=== PATIENT | female | born 1995 | race Caucasian/White ===

== ENCOUNTER 2021-10-23 09:17 | Outpatient (REF) | payer MEDICAID, SELFPAY | END 2021-10-23 09:18 | disposition home or self-care (01) | LOC: HO.LAB 09:17 | PROVIDERS: Visit Provider Internal Medicine | DX: Z20.822 Contact with and (suspected) exposure to COVID-19 (principal) | CPT/HCPCS: C9803; U0003; U0005 ==

== ENCOUNTER 2022-06-18 21:04 | Emergency (ER) | payer MEDICAID, SELFPAY ==
--- NOTE | ~2022-06-18 | XR_ITS ---
EXAMINATION: XR KNEE, LEFT CLINICAL INFORMATION: Patellar dislocation COMPARISON: 03/10/2019 TECHNIQUE: Three views of the left knee. FINDINGS: No fracture or subluxation. Compartmental joint spaces are maintained. Appropriate positioning of the patella on these views. No joint effusion. The soft tissues are unremarkable. XR/XR knee LT 3V IMPRESSION: Appropriate alignment of the left knee. No fracture.
[2022-06-18 21:16] VITALS: BP 138/70; PULSE 77; PULSE 85; RESP 18; TEMP 36.8; O2SAT 98; O2SAT 99; BMI 35.4
[2022-06-18] MEDS: Morphine Sulfate 4 MG/ML CARTRIDGE IVPUSH (21:28)
[2022-06-18] MEDS: Ketorolac Tromethamine 30 MG/ML VIAL IVPUSH (22:17)
[2022-06-18 22:39] VITALS: BP 144/90; PULSE 89; RESP 18; O2SAT 99
--- NOTE | 2022-06-18 22:45 | ED_ITS ---
HPI - General Adult General Chief complaint: Extremity Injury, Lower Stated complaint: KNEE DISLOCATION Time Seen by Provider: 06/18/22 21:17 Source: patient Mode of arrival: ambulatory Limitations: no limitations History of Present Illness HPI narrative: 26 yold female presents to the ED for left knee pain and possible knee disclocation. Patient states while getting up from a siting postiion she hear a pop in her left knee medial side which caused her immeidate pain. patient denies hitting head or loss of consciosuness. 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 but never follow up wtih PCP Related Data Previous Rx's Medication Instructions Recorded naproxen 500 mg tablet 500 mg PO BID PRN pain 10 days #20 06/18/22 tabs oxycodone 5 mg capsule 5 mg PO Q8H PRN pain #9 caps 06/18/22 prednisone 20 mg tablet 40 mg PO DAILY 5 days #10 tabs 06/18/22 Allergies Allergy/AdvReac Type Severity Reaction Status Date / Time No Known Allergies Allergy Verified 06/18/22 21:19 [No Known Allergies*] Review of Systems Review of Systems: left knee pain Yes all other systems are reviewed and are negative [facility] Past Medical History Medical History (Updated 06/18/22 @ 23:04 by KIMBERLY Nuñez) Knee dislocation Social History Social History Advance Directives: No Advance Directives Information Provided: No Patient : No Physical Exam ED Vital Signs: Vital Signs - 24 hr 06/18/22 21:16 06/18/22 22:39 Temperature 98.2 F Pulse Rate 77 89 Respiratory Rate 18 18 Blood Pressure 144/90 H Pulse Oximetry 99 99 Oxygen Delivery Method Room Air Room Air BMI result Body Mass Index 35.4 Const General: cooperative, healthy appearing, comfortable, no acute distress, well developed, alert, awake and Physically active Orientation/consciousness: patient oriented x3 HENMT Head: Yes normal to inspection, Yes No palpable skull fracture present, Yes normocephalic, Yes atraumatic and No abrasion Eyes General: appearance normal, both eyes and all related structures Neck Neck: Yes normal visual inspection, Yes full ROM, Yes no lymphadenopathy, Yes no meningeal signs, Yes trachea midline, Yes supple, No anterior neck swelling and No tender Chest Chest palpation & inspection: normal inspection of the chest and normal palpation of entire chest wall Resp Effort & Inspection: normal respiratory effort and able to speak in complete sentences Auscultation: clear to auscultation bilaterally Cardio Jugular venous distension: no JVD Heart sounds: S1 normal heart sound present and S2 normal heart sound present GI Inspection: Yes normal to inspection and No abdominal wall ecchymosis Palpation (GI): Soft to palpation, not firm, nontender, no guarding and not rigid General: No CVA tenderness and Yes no CVA tenderness Back/Spine/Pelvis Back: no CVA tenderness, No CVA tenderness and No sacral edema Skin General skin exam: no rashes or lesions noted and elasticity normal Neuro General: patient oriented x3, gait normal, no meningeal signs and CN's II-XI intact bilaterally Cranial nerves: Yes CN's II-XII intact bilaterally Extrem General: Yes normal to inspection and Yes full ROM Knee images: 1. Tenderness on palpation in medial side of knee on palpation. Negative for deformity of patella. Neuro and vascular exam is intact. patient flex and extend knee with pain causing some limitation on movement. Psych Appearance: grossly normal, well kempt and not disheveled Course Course Course Narrative: Left knee pain. Reevaluation(s) Reevaluation #1: Left knee xray negative for fracture or dislocation. patient informed most likely she has a meniscusus or ligament tear and will need follow up. Discharge with cruthces and knee brace Medical Decision Making MDM Narrative Medical decision making narrative: Knee sprain Discharge Plan Discharge Clinical Impression: Knee sprain Patient Disposition: Home, Self-Care Instructions: Knee Sprain (ED) Additional Instructions: You will need follow up with PcP or Orthopedics for MRI to evaluate for possible meniscus or ligament tear. Return to the ED immeidatley for knee swelling, redness, fever, chills, leg swelling, calf pain, red streakns, chest pain, shortness of breath or any other concerning symptom. Prescriptions: New naproxen 500 mg tablet 500 mg PO BID PRN (Reason: pain) 10 Days Qty: 20 0RF prednisone 20 mg tablet 40 mg PO DAILY 5 Days Qty: 10 0RF oxycodone 5 mg capsule 5 mg PO Q8H PRN (Reason: pain) Qty: 9 0RF Rx Instructions: Partial Fill upon patient request. Referrals: Filiberto Hammer MD [Physician] - (heard pop in left knee. Possible knee menisucs/ligament tear) Stand Alone Forms: Work/School Release Discharge Date/Time: 06/18/22 23:22 Print Language: Amharic
[2022-06-18] MEDS: Morphine Sulfate 2 MG/ML CARTRIDGE IVPUSH (23:08)
== END 2022-06-18 23:22 | disposition home or self-care (01) ==
PROVIDERS: Emergency Provider Internal Medicine
DX: S83.92XA Sprain of unspecified site of left knee, initial encounter (principal); M25.562 Pain in left knee; X50.1XXA Overexertion from prolonged static or awkward postures, initial encounter; Y93.9 Activity, unspecified; Y92.009 Unspecified place in unspecified non-institutional (private) residence as the place of occurrence of the external cause; Y99.9 Unspecified external cause status; Z79.899 Other long term (current) drug therapy
CPT/HCPCS: 73562; 96374; 96375; 96376; 99284; J1885; J2270

== ENCOUNTER 2022-07-04 07:23 | Outpatient (REF) | payer MEDICAID, SELFPAY ==
--- NOTE | ~2022-07-04 | XR_ITS ---
EXAMINATION: XR KNEE, LEFT CLINICAL INFORMATION: Left knee pain. COMPARISON: Radiographs left knee 06/18/2022, MRI left knee 03/24/2019. TECHNIQUE: Axial view patella. FINDINGS: Normal bony mineralization. No fracture. No patellar dislocation or lateralization. No narrowing patellofemoral joint or erosive change or chondrocalcinosis. XR/XR knee LT 1V IMPRESSION: Normal study.
== END 2022-07-04 07:24 | disposition home or self-care (01) ==
LOC: HO.HOSX 07:23
PROVIDERS: Visit Provider Physician Assistant
DX: M25.562 Pain in left knee (principal); M23.92 Unspecified internal derangement of left knee
CPT/HCPCS: 73560; 99202

== ENCOUNTER 2022-07-12 19:35 | Outpatient (REF) | payer OTHER, MEDICAID, SELFPAY ==
--- NOTE | ~2022-07-12 | MR_ITS ---
EXAMINATION: MR KNEE WITHOUT CONTRAST, LEFT CLINICAL INFORMATION: Left knee pain and swelling. Internal derangement. COMPARISON: Most recent left knee MRI dated 03/24/2019 and left knee radiographs dated 07/04/2022. TECHNIQUE: MRI of the knee without contrast was performed using routine sequences on a high-field scanner. FINDINGS: MENISCI: Medial Meniscus: Bucket-handle tear of the medial meniscus with approximate 75% of the meniscal tissue displaced centrally. Tearing extends from the anterior horn to the posterior root. Lateral Meniscus: Intact. LIGAMENTS: Cruciate: Absence of the anterior cruciate ligament consistent with a chronic, complete tear. Intact posterior cruciate ligament. Collateral: Intact. EXTENSOR MECHANISM: Intact. ARTICULAR CARTILAGE/BONE: Patellofemoral Compartment: Normal. Medial Compartment: Normal. Lateral Compartment: Normal. JOINT FLUID AND BURSAE: Moderate joint effusion. MR/MR knee LT wo con IMPRESSION: 1. Bucket-handle tear of the medial meniscus with approximate 75% of the meniscal volume displaced centrally. The tear extends from the anterior horn to the posterior root. 2. Chronic, complete anterior cruciate ligament tear. 3. Moderate joint effusion.
== END 2022-07-12 19:36 | disposition home or self-care (01) ==
LOC: HO.MRI 19:35
PROVIDERS: Visit Provider Emergency Medicine
DX: M23.92 Unspecified internal derangement of left knee (principal)
CPT/HCPCS: 73721

== ENCOUNTER → 2022-07-16 14:27 | Outpatient (BNVA) | payer OTHER, MEDICAID, SELFPAY | PROVIDERS: Visit Provider Orthopaedic Surgery | DX: S83.212D Bucket-handle tear of medial meniscus, current injury, left knee, subsequent encounter (principal); S83.512D Sprain of anterior cruciate ligament of left knee, subsequent encounter | CPT/HCPCS: 99212 ==

== ENCOUNTER 2022-07-25 05:52 | Day surgery (SDC) | payer OTHER, MEDICAID, SELFPAY ==
--- NOTE | 2022-07-24 08:41 | P.CONAN_ITS ---
Documented by User: Neema Huerta NP 07/24/22 08:41 HPI - Anesthesia Eval Consult details Narrative: 26yo F for Left ACL Allograft,and meniscus tear PMFSH Active Problems Active Problems: All Active Problems (Updated 07/16/22 @ 15:13 by Rod Barnett) Tears of meniscus and ACL of left knee (Acute) Locked knee (Acute) Internal derangement of left knee (Acute) Past Medical History Medical History Knee dislocation Social History Social History Patient Tobacco Use Status: Current everyday Tobacco user Tobacco use type: Cigarette Cigarettes Per Day: 3 Use of substances other than those prescribed or required for medical reasons: No Are you DNR?: No Advance Directives: No Advance Directives Information Provided: Yes Current occupational status: employed 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 Meds Allergies Allergy/AdvReac Type Severity Reaction Status Date / Time No Known Allergies Allergy Verified 07/16/22 15:08 [No Known Allergies*] Home Medications Medication Instructions Recorded Confirmed Last Taken Type levonorgestrel 1.5 mg tablet 1.5 mg PO ONCE 07/04/22 Unknown History (Aftera) Exam Exam Date and Time: July 24, 2022 0841 Assessment and Plan Assessment Anesthesia Assessment: Chart Reviewed Documented by User: Christ Goncalves MD 07/25/22 07:34 [facility] Past Medical History Medical History Knee dislocation Family History Family history of problems with anesthesia: No Surgical History History of Problems with Anesthesia: No Social History Social History Patient Tobacco Use Status: Current everyday Tobacco user Tobacco use type: Cigarette Cigarettes Per Day: 3 Use of substances other than those prescribed or required for medical reasons: No Are you DNR?: No Advance Directives: No Advance Directives Information Provided: Yes Current occupational status: employed 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 Meds Allergies Allergy/AdvReac Type Severity Reaction Status Date / Time No Known Allergies Allergy Verified 07/16/22 15:08 [No Known Allergies*] Home Medications Medication Instructions Recorded Confirmed Last Taken Type levonorgestrel 1.5 mg tablet 1.5 mg PO ONCE 07/04/22 Unknown History (Aftera) Exam Airway Mallampati Class: II TM Dist: >3cm Neck ROM: Full Loose/Missing/Broken Teeth: No Heart: rrr+[id number] Lungs: cta b/l Assessment and Plan Assessment Anesthesia Assessment: Anesthesia Plan Discussed Final Anesthetic Review Family History of Problems with Anesthesia: No History of Problems with Anesthesia: No NPO: Yes ASA Class: I Final Preanesthetic Review: No Changes in Pt Med Stat, Meds/Allgs Chart Reviewed, Consent Obtained/Reviewed and Anes Risks/Benef Reviewed Patient Risk: Low Procedure Risk: Low Assessment/Block/Sedation in SS: Assess/Block/Sedation-SS Anesthetic Plan Anesthetic Plan: GA and Agree w/ Assess. and Plan Disposition: Standard PACU
[2022-07-25] VITALS (19 sets, daily range): BP systolic 111–134; BP diastolic 45–86; PULSE 70–99; RESP 14–22; TEMP 36.4–36.7; O2SAT 94–98; BMI 34.0
[2022-07-25 06:27] LABS: UPreg QC Valid YES; Urine Pregnancy NEGATIVE (NEGATIVE)
--- NOTE | 2022-07-25 07:33 | MHC.SHP ---
Pre-Procedural Eval Section A Date of Service: 07/25/22 The patient is an INPATIENT: No Changes since office visit: Yes Patient answered all questions; No Cold of Flu in the past 2 weeks, No New Medical Problems and No Changes in Medication The History & Physical has been completed within 30 days and I have reviewed it.: Yes Section B Chief Complaint: Unspecified tear meniscus, current Allergies: Allergies Allergy/AdvReac Type Severity Reaction Status Date / Time No Known Allergies Allergy Verified 07/16/22 15:08 [No Known Allergies*] Plan I have reviewed the history and physical and performed a pertinent physical examination on my patient. No changes have occurred unless specified.
--- NOTE | 2022-07-25 09:36 | PM.OP ---
Brief Operative Note Date of Service: 07/25/22 Pre-op diagnosis: Left knee ACL tear and medial meniscus tear Post-op diagnosis: same Procedure: Left knee ACL reconstruction with allograft Left knee medial meniscus repair Implants: Blackwood and Nephew fast pass x 4 Blackwood and Nephew ACL button and 9x25 tibial interference biocomposite screw RTI posterior tibial allograft Surgeon: Filiberto Hammer MD Anesthesia: GETA and local Was an Forming Operator used for this Procedure?: Yes Forming Operator: Cassi Barakat Estimated blood loss (mL): 25 Tourniquet time (min): 70 IV fluids (mL): 100 Pathology: other Condition: stable Disposition: PACU
[2022-07-25] MEDS: oxyCODONE HCl Immed Release 5 MG TABLET 10 MG PO (09:49)
[2022-07-25] MEDS: ondansetron HCL 4 MG/2 ML VIAL IVPUSH (09:50)
[2022-07-25] MEDS: fentaNYL citrate/PF 100 MCG/2 ML VIAL 50 MCG IVPUSH ×4 (09:50→12:51)
--- NOTE | 2022-07-25 09:52 | P.OP_ITS ---
Operative Note Operative Note Date of Service: 07/25/22 Narrative: Date of Service: 07/25/22 Pre-op diagnosis: Left knee ACL tear and medial meniscus tear Post-op diagnosis: same Procedure: Left knee ACL reconstruction with allograft Left knee medial meniscus repair Implants: Blackwood and Nephew fast pass x 4 Blackwood [employer] Nephew ACL button and 9x25 tibial interference biocomposite screw RTI posterior tibial allograft Surgeon: Filiberto Hammer MD Anesthesia: GETA and local Was an Supervisor Type Photography used for this Procedure?: Yes Supervisor Type Photography: Cassi Barakat Estimated blood loss (mL): 25 Tourniquet time (min): 70 IV fluids (mL): 100 Pathology: other Condition: stable Disposition: PACU CPT: 70221 ACL reconstruction 96814 Medial meniscus repair Procedure in detail: Patient was brought to the operating room placed supine on the arthroscopic table and prepped and draped in standard sterile fashion. A time-out was called to identify proper site proper procedure proper surgeon and IV antibiotics per weight were administered. Under anesthesia she had a + pivot shift. I began by exsanguinating the limb and insufflating tourniquet to 300 mm Hg. Then made a standard anterolateral stab incision. The knee was insufflated with water and 30 degree arthroscope was placed. There was grade 0 fibrillations of the patella but overall suprapatellar pouch and the gutters were clean. I descended into the medial compartment where I made my far medial portal under direct visualization. There was an unstable bucket handle medial meniscus tear in the red/white zone. The root was intact and there were scattered grade 1 changes of the MFC. I used four Fast Pass meniscal cinches (Blackwood and Nephew) to repair the tear through the AM portal. A menicsal rasp was used to debride the posteromedial meniscal bed. I was satisfied with the extent of repair. I then examined the notch where there was a + empty wall sign and an intact PCL. I debrided the stump and acl footprint and performed a limited notchplasty. I then, through a far AM portal and a 7mm behind the back guide, drilled a k-wire through the LFC with the knee in hyper-flexion. I measured the tunnel as a 30mm and then after sizing the allograft on the back table drilled a 25 mm tunnel with a 9 mm reamer. The final 6 mm was drilled with a 4.5 reamer. I then pulled a suture through the femoral tunnel and turned my attention to the tibia. I did examine the femoral tunnel and was satisfied with the posterior wall and its location low and medial at the anatomic footprint. I placed my tibial drill guide in 55 deg and, through an anteromedial inc just lateral to the tibial tubercle placed a k-wire into the notch exiting just medial to the anterior horn insertion of the lateral meniscus. I then over-reamed with a 9mm reamer. I cleaned the tunnels up with a shaver. On the back table I whip-stitched the allograft to fit through an 9 aperture and attached the femoral button to the looped end. I placed the graft on 15lbs of tension for 10 minutes. I then passed the allograft through the tibial tunnel and femoral tunnel and flipped the button. I cycled the knee about 10-15 cycles and then placed a 9x25mm tibial interference screw with the knee in hyper-extension while holding the graft taught and under tension. Once I was satisfied that the interference screw was buried I examined the ACL and the medial meniscus repair. The repair was stable and the ACL was not impinging and there was a negative pivot shift. I then removed all instrumentation and closed the incisions with absorbable suture and skin glue. Patient was then placed in sterile dressings and a hinged knee brace. She was then extubated brought recovery room stable condition. There were no known complications.
[2022-07-25] MEDS: Ketorolac Tromethamine 30 MG/ML VIAL IVPUSH (10:05)
== END 2022-07-25 14:15 | disposition home or self-care (01) ==
PROVIDERS: Nurse Practitioner; Visit Provider Orthopaedic Surgery
PROC: (CPT 27428; principal; 2022-07-25 07:30)
DX: S83.212A Bucket-handle tear of medial meniscus, current injury, left knee, initial encounter (principal); S83.512A Sprain of anterior cruciate ligament of left knee, initial encounter; M25.40 Effusion, unspecified joint; X50.1XXA Overexertion from prolonged static or awkward postures, initial encounter; Y93.9 Activity, unspecified; Y92.9 Unspecified place or not applicable; Y99.8 Other external cause status
CPT/HCPCS: 29888; 29882; 81025; A4649; C1713; C1769; J0131; J0171; J0690; J1100; J1170; J1885; J2250; J2405; J2550; J2795; J3010

== ENCOUNTER 2022-08-02 | Outpatient (REF) | payer OTHER, MEDICAID, SELFPAY ==
--- NOTE | ~2022-08-02 | XR_ITS ---
EXAMINATION: XR KNEE, LEFT CLINICAL INFORMATION: Pain. COMPARISON: None TECHNIQUE: Four views of the left knee. FINDINGS: There is mild suprapatellar joint effusion with evidence of left AC tendon repair. The tricompartment joint space is maintained normal. No loose bodies or fracture seen. XR/XR knee LT 2V IMPRESSION: Mild suprapatellar joint effusion. Evidence of left AC tendon repair changes. No acute fracture or loose bodies.
== END 2022-08-02 00:01 | disposition home or self-care (01) ==
LOC: HO.HOSX
PROVIDERS: Visit Provider Physician Assistant
DX: M25.562 Pain in left knee (principal)
CPT/HCPCS: 73560

== ENCOUNTER 2022-09-28 15:00 | Outpatient (RCR) | payer OTHER, MEDICAID, SELFPAY ==
--- NOTE | 2022-07-30 18:15 | MHC.PT.EP ---
[facility] [place] Office [place] Office [place] Office [address] [phone] F: [phone] F: [phone] F: [phone] F: [phone] Physical Therapy Plan of Care Date of Evaluation: Date of Surgery: 07/25/22 Diagnosis: P/O ACL allograft repair and medial meniscus repair on 07/25 (RC + BB) Assessment: pt is a 26 y/o female presenting to physical therapy following L LE ACL allograft repair and L medial meniscus complex repair on 07/25. Impairments include pain, decreased range of motion, decreased strength, impaired functional mobility, impaired postural awareness, and altered ambulation mechanics. pt is a good candidate for skilled PT due to age, potential remediation of impairments, typical disease/condition progression and prognosis, comorbidities, and motivation. pt would benefit from skilled PT intervention to provide a tailored strengthening and stretching exercise program, functional training, gait training, postural re-training, neuromuscular re-education, modalities as needed for pain, equipment safety demonstration. Frequency and Duration: The patient will be seen 2x/wk for 18 wks Short Term Goals: pt will be I w/ HEP to promote self-management of post-operative status. pt will be I w/ donning/doffing brace to participate in self-care activities and exercise. pt wll improve L knee flexion to at least 90* to promote improved sitting tolerance for ADLs. Shelter Goals: pt will report a statistically significant improvement in self-reported outcome measure, LEFI, to promote return to PLOF. pt will improve L knee extension strength to at least 4/5 to promote ease in sit<>stand transfers. pt will ambulate 5 x 50' to promote ease in household ambulation to access primary living spaces. Treatment Plan: Modalities to reduce pain, spasms and effusion. Manual therapy to restore motion and function. Therapeutic exercise to improve strength and flexibility. Neuromuscular re-education for posture and balance. Therapeutic activities to return to functional activities of daily living. Electronically signed by: Rosalee Trimble PT, DPT Please sign and return to therapist. Thank you for your referral.
--- NOTE | 2022-10-17 18:04 | MHC.PT.DC ---
[facility] [place] Office [place] Office [place] Office [address]unn [address] [phone] F: [phone] F: [phone] F: [phone] F: [phone] Physical Therapy Discharge Report Diagnosis: P/O ACL allograft repair and medial meniscus repair on 07/25 (RC + BB) Date of Surgery: 07/25/22 Date of Evaluation: 07/27/22 Date of Discharge: 10/17/22 Treatments to Date: 16 Cancellations to Date: 1 No Shows to Date: 6 Discharge Status: Improved Function Visit Non-compliance Discharge Summary: The patient was coming consistently and reporting an improvement in her pain frequency, intensity, and ability to tolerate activities within her home. She has no showed a total of 6 visits. The last 4 were consecutive. This office has reached out to her multiple times with no response. She is being discharged from this physical therapy plan of care due to non-compliance. Electronically signed by: Rosalee Trimble PT, DPT Please sign and return to therapist. Thank you for your referral.
== END 2022-10-17 18:05 | disposition home or self-care (01) ==
LOC: HO.PT 15:00
PROVIDERS: PCP Pediatrics; Visit Provider Physician Assistant
DX: S83.207D Unspecified tear of unspecified meniscus, current injury, left knee, subsequent encounter (principal); S83.512D Sprain of anterior cruciate ligament of left knee, subsequent encounter
CPT/HCPCS: 97014; 97110; 97112; 97140; 97162; 97535

== ENCOUNTER → 2022-10-15 15:29 | Outpatient (BNVA) | payer MEDICAID, SELFPAY | PROVIDERS: PCP Pediatrics; Visit Provider Physician Assistant | DX: S83.242D Other tear of medial meniscus, current injury, left knee, subsequent encounter (principal); S83.512D Sprain of anterior cruciate ligament of left knee, subsequent encounter | CPT/HCPCS: 99212 ==

== ENCOUNTER → 2022-11-26 09:25 | Outpatient (BNVA) | payer MEDICAID, SELFPAY | PROVIDERS: PCP Pediatrics; Visit Provider Physician Assistant | DX: S83.207A Unspecified tear of unspecified meniscus, current injury, left knee, initial encounter (principal); S83.512A Sprain of anterior cruciate ligament of left knee, initial encounter | CPT/HCPCS: 99212 ==

== ENCOUNTER 2023-09-10 09:47 | Inpatient (IN) | payer OTHER, SELFPAY ==
--- NOTE | 2023-09-10 10:08 | ED.PSYCH ---
HPI - Psych General Chief Complaint: Psychiatric Symptoms Stated Complaint: SI/HI,VOLUNTARY Time Seen by Provider: 09/10/23 10:03 Source: patient, EMS and RN notes reviewed Mode of arrival: EMS Limitations: no limitations History of Present Illness HPI Narrative: This is a 27-year-old female, with a past medical history of anxiety and depression, presenting to the emergency department via EMS with complaints of suicidal ideations. Patient states that she has struggled with suicidal ideations for many years but states that this has worsened this morning. She states that she had thoughts of hanging herself this morning. She called the [facility] crisis line and at the [facility] worker reported to her in her home and called EMS for transport. Patient denies any fevers, chills, chest pain, shortness of breath abdominal pain, nausea or vomiting. No urinary symptoms. She is a current cigarette smoker and also uses marijuana. She denies alcohol or any illicit drug use. She does not take any medications for her anxiety or depression. Denies homicidal ideations. No auditory or visual hallucinations. No other complaints or concerns at this time. MD complaint: suicidal ideation and feels depressed Onset (ago): year(s) Duration: constant and getting worse History of same: Yes Relieving factors: none Exacerbating factors: none Associated psychiatric symptoms: depression and suicidal ideation Associated symptoms: denies other symptoms Treatments prior to arrival: none If self harm: admits thoughts of self harm and has plan Details of plan: Hang herself Related Data Home Medications Medication Instructions Recorded Confirmed No Known Home Meds 09/10/23 09/10/23 Allergies Allergy/AdvReac Type Severity Reaction Status Date / Time No Known Allergies Allergy Verified 11/26/22 09:43 [No Known Allergies*] Review of Systems Review of Systems: Yes all other systems are reviewed and are negative Constitutional: Constitutional: Reports as per HPI [facility] Past Medical History Medical History Knee dislocation Social History Social History Household Members: None Housing: Apartment Do you presently have visiting nurse or other home services: No Patient Tobacco Use Status: Current everyday Tobacco user Tobacco use type: Cigarette Cigarettes Per Day: 3 Smoked in Last 30 Days: Yes e-Cigarette/Vaping Use: Never Used Patient Interested in Nicotine Replacement: Yes Patient Given Instructions on How to Stop Smoking: Yes Date Education Initiated: 09/10/23 Second Hand Smoke Exposure: Yes Use of substances other than those prescribed or required for medical reasons: Yes Substance Use Type: Marijuana Substance Use Frequency: Daily Last Used Substance: Unknown Currently Displaying Signs/Symptoms of Drug Intoxication Withdrawal: No Any prior treatment program specific to substance use: No Have you been hit, kicked, punched, or otherwise hurt by someone within the past year? If so, by whom?: No Do you feel safe in your current relationship?: Yes Is there a partner from a previous relationship who is making you feel unsafe now?: No Are you made to feel afraid or neglected: No Advance Directives: No Advance Directives Information Provided: No Do you have thoughts of harming others: None Do you have a plan to hurt others: No Plan Recently lost weight without trying: Yes How much weight loss: 24-33 pounds Eating poorly because of decreased appetite: Yes Nutrition screen score: 6 Nutrition Risks: Poor intake 0-25% >4 days Patient : No : No Poor oral hygiene: No service: No Current occupational status: employed 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 Sexual orientation: Straight/Heterosexual Physical Exam Vital Signs: Vital Signs: Last Vital Signs Temp 99.1 F 09/14/23 21:15 Pulse 95 09/14/23 21:15 Resp 18 09/14/23 21:15 BP 112/67 09/14/23 21:15 Pulse Ox 96 09/14/23 21:15 O2 Del Method Room Air 09/14/23 21:15 BMI result Body Mass Index 36.8 Const: General: cooperative, comfortable and no acute distress Orientation/consciousness: patient oriented x3 Limitations: no limitations HEENT: Head: Yes normal to inspection, Yes normocephalic and Yes atraumatic Ears: hearing grossly normal bilaterally General nose exam: Normal external nose present Face and sinus: Yes normal facial exam Mouth: Normal oral and palatal mucosa present, oropharynx normal and moist mucous membranes Throat: Yes posterior oropharynx normal Eyes: General: appearance normal, both eyes and all related structures Eyelids: Yes eyelids normal Conjunctivae: conjunctivae normal Sclerae: sclerae normal Pupils: Equal, round and reactive pupils present EOM: EOMs intact bilaterally Neck: Neck: Yes normal visual inspection, Yes full ROM and Yes no lymphadenopathy Lymphatic: no lymphadenopathy noted Chest: Chest palpation & inspection: normal inspection of the chest Resp: Effort & Inspection: normal respiratory effort and able to speak in complete sentences Auscultation: clear to auscultation bilaterally, no crackles, no rales, no rhonchi and no wheezes Cardio: Rate: regular rate Rhythm: regular rhythm Heart sounds: S1 normal heart sound present and S2 normal heart sound present GI: Inspection: Yes normal to inspection Skin: General skin exam: no rashes or lesions noted Trauma: no lacerations or abrasions Wounds: no wounds Neuro: General: patient oriented x3 and moves all extremities Cranial nerves: Yes Equal, round and reactive pupils present Extrem: General: Yes normal to inspection Right upper extremity: normal to inspection Left upper extremity: normal to inspection Right lower extremity: normal to inspection Left lower extremity: normal to inspection Psych: Appearance: grossly normal Mental Status: mental status grossly normal Speech and movement: Normal speech and movement present Affect: Sad affect present Attitude: cooperative Thought process: Normal thought process present Thought content: Suicidality present Insight: Poor insight present (Psych) Judgement: Poor judgement present (Psych) Course Reevaluation(s) Reevaluation #1: Urine with trace blood, trace leuk esterases, 6-10 rbc's, patient admitting to having urinary frequency, no dysuria, hematuria. She does not have her menses at this time. This appears to be retrieved contaminated, I discussed these findings with patient who will provide a 2nd urine sample. All other workup is unremarkable. No leukocytosis, stable H&H, chemistry within normal limits. is negative, positive for marijuana. Time: 11:39 Medications Administered Generic Name Dose Route Start Last Admin Trade Name Freq PRN Reason Stop Dose Admin Hydroxyzine HCl 25 mg 09/10/23 16:20 09/14/23 18:29 Hydroxyzine Hcl 25 Mg Tablet PO 25 mg Q6H PRN Administration Anxiety Nicotine 21 mg 09/13/23 10:25 09/14/23 09:10 Nicotine 21 Mg Patch.[id number] TRANSDERMA 21 mg DAILY AL Administration Nicotine Polacrilex 4 mg 09/10/23 16:20 09/13/23 10:17 Nicotine Polacrilex 2 Mg Gum BUCCAL 4 mg Q2H PRN Administration Nicotine Cravings Prazosin HCl 2 mg 09/13/23 21:00 09/14/23 21:19 Prazosin Hcl 1 Mg Capsule PO 2 mg BEDTIME AL Administration Protocol Sertraline HCl 50 mg 09/14/23 09:00 09/14/23 09:09 Sertraline Hcl 50 Mg Tablet PO 50 mg DAILY AL Administration Trazodone HCl 100 mg 09/13/23 21:00 09/13/23 22:52 Trazodone Hcl 100 Mg Tablet PO 100 mg BEDTIME [id number] PRN Administration Insomnia Discontinued Medications Generic Name Dose Route Start Last Admin Trade Name Freq PRN Reason Stop Dose Admin Influenza Virus Vaccine 0.5 ml 09/10/23 18:11 09/10/23 20:03 Flu Vacc [id number](6mos Up)/Pf 0.5 Ml Syringe IM 09/10/23 18:12 0.5 ml .ONCE ONE Administration Lorazepam 1 mg 09/10/23 10:13 09/10/23 10:25 Lorazepam 1 Mg Tablet PO 09/10/23 10:14 1 mg ONCE ONE Administration Lorazepam 1 mg 09/11/23 18:32 09/11/23 18:42 Lorazepam 1 Mg Tablet PO 09/11/23 18:33 1 mg ONCE ONE Administration Olanzapine 2.5 mg 09/11/23 18:40 09/11/23 18:49 Olanzapine 2.5 Mg Tablet PO 09/12/23 09:00 2.5 mg Q4H PRN Administration severe anxiety, PTSD sx Prazosin HCl 1 mg 09/11/23 21:00 09/12/23 21:22 Prazosin Hcl 1 Mg Capsule PO 1 mg BEDTIME AL Administration Protocol Sertraline HCl 25 mg 09/11/23 14:45 09/13/23 09:08 Sertraline Hcl 25 Mg Tablet PO 25 mg DAILY AL Administration Trazodone HCl 50 mg 09/10/23 16:20 09/12/23 22:36 Trazodone Hcl 50 Mg Tablet PO 50 mg BEDTIME MRX1 PRN Administration Insomnia Medical Decision Making Medical Decision Making MDM Narrative: This is a 27-year-old female, with a past medical history of depression and anxiety, presenting to the emergency department for worsening depression, and suicidal ideations. On arrival, patient is tearful, anxious appearing. Vital signs stable. Patient has a suicidal plan of hanging herself. She was previously admitted at [facility] last year for similar symptoms. She has no physical complaints. Plan: Basic labs, urine drug screen, UA, Ativan 1 p.o. Differential Diagnosis Differential Diagnoses: The differential diagnosis associated with the presentation includes Suicidal ideation Admission/Observation Consideration of admission/observation: Escalation of care including admission/observation considered Lab Data MDM Lab Attestation statement: I reviewed the patient's lab results. 09/10/23 10:42 09/10/23 10:42 Labs: Lab Results 09/10/23 09/10/23 09/10/23 Range/Units 10:42 10:47 11:05 WBC 7.5 (4.8-10.8) X10*3/uL RBC 5.12 (4.20-5.50) X10*6/uL Hgb 14.3 (12.0-16.0) g/dl Hct 44.2 (37.0-47.0) % MCV 86.3 (80.0-98.0) fL MCH 27.9 (27.0-33.0) pg MCHC 32.4 (31.0-35.0) g/dl RDW 12.8 (11.0-16.0) % Plt Count 238 (160-400) X10*3/uL MPV 10.8 (9.4-12.3) fL Immature Gran % (Auto) 0.1 (0.0-0.4) % Neut % (Auto) 64.2 (45-73) % Lymph % (Auto) 27.7 (20-40) % [place] % (Auto) 5.6 (2-11) % Eos % (Auto) 1.7 (0-4) % Baso % (Auto) 0.7 (0-2) % Lymph # (Auto) 2.1 (1.2-4.9) X10*3/uL [place] # (Auto) 0.4 (0.1-1.2) X10*3/uL Eos # (Auto) 0.1 (0.0-0.4) X10*3/uL Baso # (Auto) 0.1 (0.0-0.2) X10*3/uL Abs Immat Gran (auto) 0.01 (0.00-0.03) X10*3/uL Absolute Neuts (auto) 4.8 (2.0-8.3) x10*3/uL Absolute Nucleated RBC 0.000 (0.0-0.012) X10*3/uL Nucleated RBC % (auto) 0.0 (0.0-0.2) /100WBC Sodium 139 (135-145) mmol/L Potassium 4.3 (3.3-5.1) mmol/L Chloride 107 (96-108) mmol/L Carbon Dioxide 25 (22-29) mmol/L Anion Gap 11 L (12-20) BUN 13 (9-16) mg/dL Creatinine 0.68 (0.5-1.4) mg/dL Estim Creat Clear Calc 125.6 Estimated GFR > 60 Random Glucose 94 (60-115) mg/dL Calcium 9.7 (8.4-10.2) mg/dL Total Bilirubin 0.4 (0.0-1.0) mg/dL Direct Bilirubin 0.2 (0.0-0.5) mg/dL AST 16 (5-31) U/L ALT 19 (0-31) U/L Alkaline Phosphatase 70 (39-117) U/L Total Protein 7.5 (6.5-8.0) g/dL Albumin 4.4 (3.5-5.0) g/dL Urine Color Yellow Urine Appearance Clear Urine pH 7.0 (5.0-9.0) Ur Specific [place] 1.015 (1.005-1.025) Urine Protein Negative (Neg-Trace) mg/dL Urine Glucose (UA) Negative (Negative) mg/dL Urine Ketones Negative (Negative) mg/dL Urine Blood Trace H (Negative) Urine Nitrite Negative (Negative) Ur Leukocyte Esterase Trace H (Negative) Urine RBC 6-10 H (0-2) /HPF Urine WBC 0-5 (0-5) /HPF Ur Squamous Epith Cells 11-20 (0-2) /HPF Urine Bacteria 2+ (None Seen) Hyaline Casts 0-2 (0-2) /LPF Urine Test NEGATIVE (NEGATIVE) Urine Opiates Screen (Not Detect) Urine Fentanyl Screen (Not Detect) Ur Barbiturates Screen (Not Detect) Ur Phencyclidine Scrn (Not Detect) Ur Amphetamines Screen (Not Detect) U Benzodiazepines Scrn (Not Detect) Urine Cocaine Screen (Not Detect) U Marijuana (THC) Screen (Not Detect) Ethyl Alcohol < 10 mg/dL COVID-19 (KHADRA) Negative (Negative) COVID-19 Clin Com See Note 09/10/23 Range/Units 11:06 WBC (4.8-10.8) X10*3/uL RBC (4.20-5.50) X10*6/uL Hgb (12.0-16.0) g/dl Hct (37.0-47.0) % MCV (80.0-98.0) fL MCH (27.0-33.0) pg MCHC (31.0-35.0) g/dl RDW (11.0-16.0) % Plt Count (160-400) X10*3/uL MPV (9.4-12.3) fL Immature Gran % (Auto) (0.0-0.4) % Neut % (Auto) (45-73) % Lymph % (Auto) (20-40) % [place] % (Auto) (2-11) % Eos % (Auto) (0-4) % Baso % (Auto) (0-2) % Lymph # (Auto) (1.2-4.9) X10*3/uL [place] # (Auto) (0.1-1.2) X10*3/uL Eos # (Auto) (0.0-0.4) X10*3/uL Baso # (Auto) (0.0-0.2) X10*3/uL Abs Immat Gran (auto) (0.00-0.03) X10*3/uL Absolute Neuts (auto) (2.0-8.3) x10*3/uL Absolute Nucleated RBC (0.0-0.012) X10*3/uL Nucleated RBC % (auto) (0.0-0.2) /100WBC Sodium (135-145) mmol/L Potassium (3.3-5.1) mmol/L Chloride (96-108) mmol/L Carbon Dioxide (22-29) mmol/L Anion Gap (12-20) BUN (9-16) mg/dL Creatinine (0.5-1.4) mg/dL Estim Creat Clear Calc Estimated GFR Random Glucose (60-115) mg/dL Calcium (8.4-10.2) mg/dL Total Bilirubin (0.0-1.0) mg/dL Direct Bilirubin (0.0-0.5) mg/dL AST (5-31) U/L ALT (0-31) U/L Alkaline Phosphatase (39-117) U/L Total Protein (6.5-8.0) g/dL Albumin (3.5-5.0) g/dL Urine Color Urine Appearance Urine pH (5.0-9.0) Ur Specific [place] (1.005-1.025) Urine Protein (Neg-Trace) mg/dL Urine Glucose (UA) (Negative) mg/dL Urine Ketones (Negative) mg/dL Urine Blood (Negative) Urine Nitrite (Negative) Ur Leukocyte Esterase (Negative) Urine RBC (0-2) /HPF Urine WBC (0-5) /HPF Ur Squamous Epith Cells (0-2) /HPF Urine Bacteria (None Seen) Hyaline Casts (0-2) /LPF Urine Test (NEGATIVE) Urine Opiates Screen Not Detected (Not Detect) Urine Fentanyl Screen Not Detected (Not Detect) Ur Barbiturates Screen Not Detected (Not Detect) Ur Phencyclidine Scrn Not Detected (Not Detect) Ur Amphetamines Screen Not Detected (Not Detect) U Benzodiazepines Scrn Not Detected (Not Detect) Urine Cocaine Screen Not Detected (Not Detect) U Marijuana (THC) Screen POSITIVE H (Not Detect) Ethyl Alcohol mg/dL COVID-19 (KHADRA) (Negative) COVID-19 Clin Com Radiology Impression Discussion of test interpretation with radiology: I have reviewed the radiologist's reading. External Record Review External record reviewed: Inpatient record, Office record, Outpatient record, Prior outpatient labs, Prior outpatient radiology, Primary care record and Outside ED record Discharge Plan Discharge Clinical Impression: Depressed affect Patient Disposition: Admitted As Inpatient Interventions: Admission Worksheet (ED) Last Done: 09/10/23 15:31 Discharge Date/Time: 09/10/23 15:32
[2023-09-10 10:14] VITALS: BP 127/64; BP 134/72; PULSE 88; PULSE 94; RESP 18; TEMP 37.2; O2SAT 97; BMI 36.8
[2023-09-10] MEDS: LORazepam 1 MG TABLET PO (10:25)
[2023-09-10 10:49] LABS: MANUAL DIFF FLAG NO
[2023-09-10 10:50] LABS: Basophils Absolute Auto 0.1 X10*3/uL (0.0-0.2); Basophils Percent Auto 0.7 % (0-2); Eosinophils Absolute Auto 0.1 X10*3/uL (0.0-0.4); Eosinophils Percent Auto 1.7 % (0-4); Hematocrit 44.2 % (37.0-47.0); Hemoglobin 14.3 g/dl (12.0-16.0); Imm Gran Abs Auto 0.01 X10*3/uL (0.00-0.03); Imm Gran Pct Auto 0.1 % (0.0-0.4); Lymphocytes Absolute Auto 2.1 X10*3/uL (1.2-4.9); Lymphocytes Percent Auto 27.7 % (20-40); Mean Corpuscular HGB Conc 32.4 g/dl (31.0-35.0); Mean Corpuscular Hemoglobin 27.9 pg (27.0-33.0); Mean Corpuscular Volume 86.3 fL (80.0-98.0); Mean Platelet Volume 10.8 fL (9.4-12.3); Monocytes Absolute Auto 0.4 X10*3/uL (0.1-1.2); Monocytes Percent Auto 5.6 % (2-11); Neutrophils Absolute Auto 4.8 x10*3/uL (2.0-8.3); Neutrophils Percent Auto 64.2 % (45-73); Platelet Count 238 X10*3/uL (160-400); Red Blood Count 5.12 X10*6/uL (4.20-5.50); Red Cell Distribution Width 12.8 % (11.0-16.0); White Blood Count 7.5 X10*3/uL (4.8-10.8)
[2023-09-10 11:06] LABS: Alanine Aminotransferase 19 U/L (0-31); Albumin Level 4.4 g/dL (3.5-5.0); Alkaline Phosphatase 70 U/L (39-117); Anion Gap 11 (12-20); Aspartate Amino Transferase 16 U/L (5-31); Bilirubin Direct 0.2 mg/dL (0.0-0.5); Bilirubin Total 0.4 mg/dL (0.0-1.0); Blood Urea Nitrogen 13 mg/dL (9-16); Calcium 9.7 mg/dL (8.4-10.2); Carbon Dioxide 25 mmol/L (22-29); Chloride 107 mmol/L (96-108); Creatinine Clr Calc Pharmacy 125.6; Estimated Glomerular Filt Rate > 60; Ethanol < 10 mg/dL; Glucose Random 94 mg/dL (60-115); Potassium 4.3 mmol/L (3.3-5.1); Sodium 139 mmol/L (135-145); Total Protein 7.5 g/dL (6.5-8.0)
[2023-09-10 11:10] LABS: COVID-19 Test Negative (Negative); IDNOW Serial# BCCEAD1C
[2023-09-10 11:16] LABS: UPreg QC Valid YES; Urine Pregnancy NEGATIVE (NEGATIVE)
[2023-09-10 11:17] LABS: Appearance Urine Clear; Color Urine Yellow; Glucose Urine UA Negative (Negative); Leukocyte Esterase Urine Trace (Negative); Nitrite Urine Negative (Negative); Specific Gravity - Urine 1.015 (1.005-1.025); UMIC TRIGGER UACC YES; Urine Blood Trace (Negative); Urine Ketones Negative (Negative); Urine Protein Negative (Neg-Trace)
[2023-09-10 11:23] LABS: Amphetamine Screen Urine Not Detected (Not Detect); Barbiturates, Urine Not Detected (Not Detect); Benzodiazepines Screen Urine Not Detected (Not Detect); Cannabinoid Screen Urine POSITIVE (Not Detect); Cocaine Screen Urine Not Detected (Not Detect); Fentanyl, urine Not Detected (Not Detect); Opiate Screen Urine Not Detected (Not Detect); Phencyclidine Screen Urine Not Detected (Not Detect)
[2023-09-10 11:23] LABS: Bacteria Urine 2+ (None Seen); Hyaline Casts Urine 0-2 /LPF (0-2); WBC Urine 0-5 /HPF (0-5)
--- NOTE | 2023-09-10 11:25 | MHC.EDTECH ---
pt changed over w security, changed into [facility]. pt belongings placed in locker 11 POD
[2023-09-10 15:50] VITALS: BP 124/80; PULSE 95; RESP 16; TEMP 36.2; O2SAT 98
[2023-09-10 16:22] VITALS: BMI 37.2
--- NOTE | 2023-09-10 17:54 | PC.ADMIT ---
Keri was admitted to at 1535 on 09/10/23 from [facility] pod on a CV for the treatment of major depressive disorder. She reported having SI at home with a plan to hang herself, and called [facility]. She reports poor sleep, poor appetite, and anhedonia. She denies current auditory and visual hallucinations. She denies current suicidal and homicidal thoughts and intent. She stated that if she were having safety concerns, she would be able to seek out staff for help. She was pleasant and cooperative with admission process. She was tearful and flat during interview. She reports daily marijuana use but denies any other etoh or substance use. Utox was positive for THC and BAL <10. She denies any current medical problems. She was placed on 15minute checks for safety.
[2023-09-10 19:45] VITALS: BP 130/87; PULSE 97; RESP 18; TEMP 36.4; O2SAT 96
[2023-09-10] MEDS: hydrOXYzine HCL 25 MG TABLET PO (20:01)
[2023-09-10] MEDS: traZODone HCL 50 MG TABLET PO (21:29)
[2023-09-11 07:44] VITALS: BP 110/70; PULSE 94; RESP 16; TEMP 36.9; O2SAT 97
[2023-09-11] MEDS: hydrOXYzine HCL 25 MG TABLET PO ×2 (12:34→18:32)
--- NOTE | 2023-09-11 13:40 | MHC.CLN ---
NUTRITION CONSULT FOR REPORTED 30# WEIGHT LOSS X 3 MONTHS. PATIENT REPORTED THAT SHE HAS LOST WEIGHT DUE TO EMOTIONAL STATE. REVIEW OF WEIGHT HX X ONE YEAR DOES NOT SUPPORT WEIGHT LOSS. SHOWS WEIGHT GAIN TREND OF +9% X ONE YEAR. PATIENT HAD NOT YET COMPLETED MENU AT TIME OF VISIT. ADVISED OF HELP AVAILABLE ON UNIT TO COMPLETE MENU AND THAT SNACK S ARE AVAILABLE ON THE UNIT. WOULD LIKE ENSURE SUPPLEMENT REPORTING THAT ONLY TAKING BITES OF FOOD AT THIS TIME. ENSURE MAX BID PROVIDES 300 KCALS, 60 G PROTEIN. ORDER PLACED.
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
[2023-09-11] MEDS: Sertraline HCL 25 MG TABLET PO (14:55)
[2023-09-11] MEDS: Nicotine Polacrilex 2 MG GUM 4 MG BUCCAL (14:55)
[2023-09-11] MEDS: LORazepam 1 MG TABLET PO (18:42)
[2023-09-11] MEDS: OLANZapine 2.5 MG TABLET PO (18:49)
[2023-09-11 20:09] VITALS: BP 130/71; PULSE 88; RESP 16; TEMP 36.6; O2SAT 99
[2023-09-11] MEDS: Prazosin HCL 1 MG CAPSULE PO (21:19)
[2023-09-11] MEDS: traZODone HCL 50 MG TABLET PO (21:20)
--- NOTE | 2023-09-11 21:20 | P.EN_ITS ---
Documented by User: Mary Roe APRN 09/11/23 21:22 Event Note Date of Service: 09/11/23 Event Note: Parking Enforcement Technician Team reports pt with severe anxiety, PTSD sx. Ordered Lorazepam 1 mg x 1 and zyprexa 2.5 mg q 4 hrs prn to assist with grounding should pt choose to use medication to help with sx mgt. Time Spent With Patient Time: Total time managing care of this patient today ____ minutes. Documented by User: Kareem Ross MD 09/11/23 22:14 Event Note Date of Service: 09/11/23
[2023-09-12 07:00] VITALS: BMI 37.0
[2023-09-12 07:16] VITALS: BP 122/60; PULSE 100; RESP 16; TEMP 36.7; O2SAT 97
[2023-09-12] MEDS: Sertraline HCL 25 MG TABLET PO (08:40)
[2023-09-12] MEDS: hydrOXYzine HCL 25 MG TABLET PO ×2 (10:28→19:22)
--- NOTE | 2023-09-12 16:03 | HO.PSYCHPN ---
Subjective Subjective Date of Service: 09/12/23 Reason For Visit: SI Interim History: calm, cooperative. feels things are going reasonably well. slept well, declines any change in medications. attending groups. per staff, anxious and tearful yesterday. wants therapy and medications. doing puzzles, social, slept well. Mental Status Exam Mental Status Exam Narrative: calm, cooperative. adequately dressed and groomed, no PMA/PMR. speech soft, decreased prosody. nml rate, amount, latency. thoughts linear and logical, no delusions or paranoia. affect constricted, normo-intense, non-labile. mood OK. no SI/SIBI/HI/AVH expressed. Diagnostics Vital Signs (24Hr): Vital Signs - 24 hr 09/11/23 20:09 09/12/23 07:16 Temperature 98 F 98.0 F Pulse Rate 88 100 Respiratory Rate 16 16 Blood Pressure 130/71 122/60 Pulse Oximetry 99 97 Oxygen Delivery Method Room Air Room Air BMI result Body Mass Index 37.0 Labs 09/10/23 10:42 09/10/23 10:42 Medications Medications Current Medications Acetaminophen (Acetaminophen 325 Mg Tablet) 650 mg PO Q6H PRN PRN Reason: Headache/Pain Mild Scale (1-3) Al Hydroxide/Mg Hydroxide (Magnesium Hydrox/Alum Hydrox 30 Ml Oral.Susp) 30 ml PO Q6H PRN PRN Reason: Heartburn/Nausea Hydroxyzine HCl (Hydroxyzine Hcl 25 Mg Tablet) 25 mg PO Q6H PRN PRN Reason: Anxiety Last Admin: 09/12/23 10:28 Dose: 25 mg Magnesium Hydroxide (Milk Of Magnesia 30 Ml Oral.Susp) 30 ml PO DAILY PRN PRN Reason: Constipation Nicotine Polacrilex (Nicotine Polacrilex 2 Mg Gum) 4 mg BUCCAL Q2H PRN PRN Reason: Nicotine Cravings Last Admin: 09/11/23 14:55 Dose: 4 mg Prazosin HCl (Prazosin Hcl 1 Mg Capsule) 1 mg PO BEDTIME AL; Protocol Last Admin: 09/11/23 21:19 Dose: 1 mg Sertraline HCl (Sertraline Hcl 25 Mg Tablet) 25 mg PO DAILY AL Last Admin: 09/12/23 08:40 Dose: 25 mg Trazodone HCl (Trazodone Hcl 50 Mg Tablet) 50 mg PO BEDTIME MRX1 PRN PRN Reason: Insomnia Last Admin: 09/11/23 21:20 Dose: 50 mg Allergies Allergies Allergy/AdvReac Type Severity Reaction Status Date / Time No Known Allergies Allergy Verified 11/26/22 09:43 [No Known Allergies*] Assessment & Plan Assessment & Plan (1) Chronic post-traumatic stress disorder (PTSD): Status: Acute Code(s): F43.12 - Post-traumatic stress disorder, chronic (2) Major depressive episode: Status: Acute Code(s): F32.9 - Major depressive disorder, single episode, unspecified Plan 09/11: start zoloft 5 mg daily for anxiety and depression. increase to 50 mg daily once it is established pt is tolerating the medication. start prazosin 1 mg at HS for nightmares and insomnia in PTSD. refer for therapy and meds at discharge. 09/12: slept well last night. mild HERNANDEZ, otherwise no complaints. continue current mgmt. Reason for continued inpatient stay Substantial Risk for: harm to self, inability to function and rapid decompensation Time Spent With Patient Time: Total time managing care of this patient today __25__ minutes.
--- NOTE | 2023-09-12 19:22 | PC.NURSE ---
Patient submitted three day note.
[2023-09-12] MEDS: Prazosin HCL 1 MG CAPSULE PO (21:22)
[2023-09-12 21:40] VITALS: BP 137/83; PULSE 83; RESP 18; TEMP 36.6; O2SAT 97
[2023-09-12] MEDS: traZODone HCL 50 MG TABLET PO (22:36)
[2023-09-13 08:00] VITALS: BP 141/91; PULSE 104; RESP 16; TEMP 36.4; O2SAT 96
[2023-09-13] MEDS: Sertraline HCL 25 MG TABLET PO (09:08)
[2023-09-13] MEDS: Nicotine Polacrilex 2 MG GUM 4 MG BUCCAL (10:17)
[2023-09-13] MEDS: Nicotine 21 MG PATCH.TD24 TRANSDERMA (10:30)
[2023-09-13] MEDS: hydrOXYzine HCL 25 MG TABLET PO ×2 (13:20→21:08)
--- NOTE | 2023-09-13 14:09 | HO.PSYCHPN ---
Subjective Subjective Date of Service: 09/13/23 Reason For Visit: SI Interim History: HERNANDEZ resolved. poor sleep. agrees to increase prazosin to 2 g, increase zoloft to 50 mg, and increase trazodone to 100 mg. per staff, using relaxation techniques. 3-day up tues. trazodone 50 not helpful for sleep. Mental Status Exam Mental Status Exam Narrative: calm, cooperative. adequately dressed and groomed, no PMA/PMR. speech soft, decreased prosody. nml rate, amount, latency. thoughts linear and logical, no delusions or paranoia. affect more flexible, normo-intense, non-labile. mood OK. no SI/SIBI/HI/AVH expressed. Diagnostics Vital Signs (24Hr): Vital Signs - 24 hr 09/12/23 21:40 09/13/23 08:00 Temperature 97.8 F 97.5 F Pulse Rate 83 104 H Respiratory Rate 18 16 Blood Pressure 137/83 141/91 H Pulse Oximetry 97 96 Oxygen Delivery Method Room Air Room Air BMI result Body Mass Index 37.0 Labs 09/10/23 10:42 09/10/23 10:42 Medications Medications Current Medications Acetaminophen (Acetaminophen 325 Mg Tablet) 650 mg PO Q6H PRN PRN Reason: Headache/Pain Mild Scale (1-3) Al Hydroxide/Mg Hydroxide (Magnesium Hydrox/Alum Hydrox 30 Ml Oral.Susp) 30 ml PO Q6H PRN PRN Reason: Heartburn/Nausea Hydroxyzine HCl (Hydroxyzine Hcl 25 Mg Tablet) 25 mg PO Q6H PRN PRN Reason: Anxiety Last Admin: 09/13/23 13:20 Dose: 25 mg Magnesium Hydroxide (Milk Of Magnesia 30 Ml Oral.Susp) 30 ml PO DAILY PRN PRN Reason: Constipation Nicotine (Nicotine 21 Mg Patch.Td24) 21 mg TRANSDERMA DAILY AL Last Admin: 09/13/23 10:30 Dose: 21 mg Nicotine Polacrilex (Nicotine Polacrilex 2 Mg Gum) 4 mg BUCCAL Q2H PRN PRN Reason: Nicotine Cravings Last Admin: 09/13/23 10:17 Dose: 4 mg Prazosin HCl (Prazosin Hcl 1 Mg Capsule) 2 mg PO BEDTIME AL; Protocol Sertraline HCl (Sertraline Hcl 50 Mg Tablet) 50 mg PO DAILY AL Trazodone HCl (Trazodone Hcl 100 Mg Tablet) 100 mg PO BEDTIME MRX1 PRN PRN Reason: Insomnia Allergies Allergies Allergy/AdvReac Type Severity Reaction Status Date / Time No Known Allergies Allergy Verified 11/26/22 09:43 [No Known Allergies*] Assessment & Plan Assessment & Plan (1) Chronic post-traumatic stress disorder (PTSD): Status: Acute Code(s): F43.12 - Post-traumatic stress disorder, chronic (2) Major depressive episode: Status: Acute Code(s): F32.9 - Major depressive disorder, single episode, unspecified Plan 09/11: start zoloft 5 mg daily for anxiety and depression. increase to 50 mg daily once it is established pt is tolerating the medication. start prazosin 1 mg at HS for nightmares and insomnia in PTSD. refer for therapy and meds at discharge. 09/12: slept well last night. mild HERNANDEZ, otherwise no complaints. continue current mgmt. 09/13: HERNANDEZ resolved. poor sleep. increase prazosin to 2 mg QHS, trazodone to 100 mg, and zoloft to 50 mg. Reason for continued inpatient stay Substantial Risk for: inability to function and rapid decompensation Time Spent With Patient Time: Total time managing care of this patient today __25__ minutes.
[2023-09-13 21:00] VITALS: BP 132/73; PULSE 92; RESP 18; TEMP 36.6; O2SAT 98
[2023-09-13] MEDS: traZODone HCL 100 MG TABLET PO ×2 (21:08→22:52)
[2023-09-13] MEDS: Prazosin HCL 1 MG CAPSULE 2 MG PO (21:08)
[2023-09-14 08:45] VITALS: BP 96/52; PULSE 87; RESP 16; TEMP 36.1; O2SAT 98
[2023-09-14] MEDS: Sertraline HCL 50 MG TABLET PO (09:09)
[2023-09-14] MEDS: Nicotine 21 MG PATCH.TD24 TRANSDERMA (09:10)
--- NOTE | 2023-09-14 10:09 | HO.PSYCHPN ---
Subjective Subjective Date of Service: 09/14/23 Reason For Visit: SI Subjective Notes: Conditional Voluntary Interim History: Patient was seen and discussed in rounds today. Records and plans were reviewed. She has been visible, having some depression with no anxiety. Poor sleep has improved. Prazosin has been increased to 2 mg. The trazodone also was helpful. She denies any side effects to the increase of Zoloft. No changes were made today Medication Compliance: Yes Side effects from medications: No Attending Groups: Yes Mental Status Exam Mental Status Exam Narrative: In today's visit she is alert, oriented and pleasant. Normal speech. Moderate eye contact. Appropriate affect. No signs of psychosis. No SI. Cognitively is intact. Judgment is intact Diagnostics Vital Signs (24Hr): Vital Signs - 24 hr 09/13/23 21:00 Temperature 97.9 F Pulse Rate 92 Respiratory Rate 18 Blood Pressure 132/73 Pulse Oximetry 98 Oxygen Delivery Method Room Air BMI result Body Mass Index 37.0 Labs 09/10/23 10:42 09/10/23 10:42 Medications Medications Current Medications Acetaminophen (Acetaminophen 325 Mg Tablet) 650 mg PO Q6H PRN PRN Reason: Headache/Pain Mild Scale (1-3) Al Hydroxide/Mg Hydroxide (Magnesium Hydrox/Alum Hydrox 30 Ml Oral.Susp) 30 ml PO Q6H PRN PRN Reason: Heartburn/Nausea Hydroxyzine HCl (Hydroxyzine Hcl 25 Mg Tablet) 25 mg PO Q6H PRN PRN Reason: Anxiety Last Admin: 09/13/23 21:08 Dose: 25 mg Magnesium Hydroxide (Milk Of Magnesia 30 Ml Oral.Susp) 30 ml PO DAILY PRN PRN Reason: Constipation Nicotine (Nicotine 21 Mg Patch.Td24) 21 mg TRANSDERMA DAILY [facility] Last Admin: 09/14/23 09:10 Dose: 21 mg Nicotine Polacrilex (Nicotine Polacrilex 2 Mg Gum) 4 mg BUCCAL Q2H PRN PRN Reason: Nicotine Cravings Last Admin: 09/13/23 10:17 Dose: 4 mg Prazosin HCl (Prazosin Hcl 1 Mg Capsule) 2 mg PO BEDTIME [facility]; Protocol Last Admin: 09/13/23 21:08 Dose: 2 mg Sertraline HCl (Sertraline Hcl 50 Mg Tablet) 50 mg PO DAILY [facility] Last Admin: 09/14/23 09:09 Dose: 50 mg Trazodone HCl (Trazodone Hcl 100 Mg Tablet) 100 mg PO BEDTIME MRX1 PRN PRN Reason: Insomnia Last Admin: 09/13/23 22:52 Dose: 100 mg Allergies Allergies Allergy/AdvReac Type Severity Reaction Status Date / Time No Known Allergies Allergy Verified 11/26/22 09:43 [No Known Allergies*] Assessment & Plan Assessment & Plan (1) Chronic post-traumatic stress disorder (PTSD): Status: Acute Code(s): F43.12 - Post-traumatic stress disorder, chronic (2) Major depressive episode: Status: Acute Code(s): F32.9 - Major depressive disorder, single episode, unspecified Plan 09/11: start zoloft 5 mg daily for anxiety and depression. increase to 50 mg daily once it is established pt is tolerating the medication. start prazosin 1 mg at HS for nightmares and insomnia in PTSD. refer for therapy and meds at discharge. 09/12: slept well last night. mild HERNANDEZ, otherwise no complaints. continue current mgmt. 09/13: HERNANDEZ resolved. poor sleep. increase prazosin to 2 mg QHS, trazodone to 100 mg, and zoloft to 50 mg. 09/14: Continue current regimen and plans Reason for continued inpatient stay Substantial Risk for: med/psych decompensation Time Spent With Patient Time: Total time managing care of this patient today ____ minutes.
[2023-09-14] MEDS: hydrOXYzine HCL 25 MG TABLET PO (18:29)
[2023-09-14 21:15] VITALS: BP 112/67; PULSE 95; RESP 18; TEMP 37.3; O2SAT 96
[2023-09-14] MEDS: Prazosin HCL 1 MG CAPSULE 2 MG PO (21:19)
[2023-09-14] MEDS: traZODone HCL 100 MG TABLET PO (22:05)
[2023-09-15] MEDS: traZODone HCL 100 MG TABLET PO ×3 (01:42→23:45)
[2023-09-15 08:25] VITALS: BP 97/62; PULSE 72; RESP 16; TEMP 36.2; O2SAT 96
[2023-09-15] MEDS: Sertraline HCL 50 MG TABLET PO (09:02)
[2023-09-15] MEDS: Nicotine 21 MG PATCH.TD24 TRANSDERMA ×2 (09:03→09:04)
--- NOTE | 2023-09-15 09:08 | HO.PSYCHPN ---
Subjective Subjective Date of Service: 09/15/23 Reason For Visit: SI Subjective Notes: Conditional Voluntary Interim History: Patient was seen and discussed in rounds today. Records and plans were reviewed. She is doing better, is visible and engaged. No anxiety or depression reported. Trazodone has been helpful. She has had a little nausea with the increase of Zoloft. She slept 6 hours last night. Also a middle of the night she had a nose bleed. No changes were made today Medication Compliance: Yes Side effects from medications: No Attending Groups: Yes Review of Systems Review of Systems Yes all other systems are reviewed and are negative Mental Status Exam Mental Status Exam Narrative: In today's visit she is alert, oriented and pleasant. Normal speech. Moderate eye contact. Appropriate affect. No signs of psychosis. No SI. Cognitively is intact. Judgment is intact Diagnostics Vital Signs (24Hr): Vital Signs - 24 hr 09/14/23 21:15 09/15/23 08:25 Temperature 99.1 F 97.1 F Pulse Rate 95 72 Respiratory Rate 18 16 Blood Pressure 112/67 97/62 Pulse Oximetry 96 96 Oxygen Delivery Method Room Air Room Air BMI result Body Mass Index 37.0 Labs 09/10/23 10:42 09/10/23 10:42 Medications Medications Current Medications Acetaminophen (Acetaminophen 325 Mg Tablet) 650 mg PO Q6H PRN PRN Reason: Headache/Pain Mild Scale (1-3) Al Hydroxide/Mg Hydroxide (Magnesium Hydrox/Alum Hydrox 30 Ml Oral.Susp) 30 ml PO Q6H PRN PRN Reason: Heartburn/Nausea Hydroxyzine HCl (Hydroxyzine Hcl 25 Mg Tablet) 25 mg PO Q6H PRN PRN Reason: Anxiety Last Admin: 09/14/23 18:29 Dose: 25 mg Magnesium Hydroxide (Milk Of Magnesia 30 Ml Oral.Susp) 30 ml PO DAILY PRN PRN Reason: Constipation Nicotine (Nicotine 21 Mg Patch.Td24) 21 mg TRANSDERMA DAILY AL Last Admin: 09/15/23 09:04 Dose: 21 mg Nicotine Polacrilex (Nicotine Polacrilex 2 Mg Gum) 4 mg BUCCAL Q2H PRN PRN Reason: Nicotine Cravings Last Admin: 09/13/23 10:17 Dose: 4 mg Prazosin HCl (Prazosin Hcl 1 Mg Capsule) 2 mg PO BEDTIME AL; Protocol Last Admin: 09/14/23 21:19 Dose: 2 mg Sertraline HCl (Sertraline Hcl 50 Mg Tablet) 50 mg PO DAILY AL Last Admin: 09/15/23 09:02 Dose: 50 mg Trazodone HCl (Trazodone Hcl 100 Mg Tablet) 100 mg PO BEDTIME MRX1 PRN PRN Reason: Insomnia Last Admin: 09/15/23 01:42 Dose: 100 mg Allergies Allergies Allergy/AdvReac Type Severity Reaction Status Date / Time No Known Allergies Allergy Verified 11/26/22 09:43 [No Known Allergies*] Assessment & Plan Assessment & Plan (1) Chronic post-traumatic stress disorder (PTSD): Status: Acute Code(s): F43.12 - Post-traumatic stress disorder, chronic (2) Major depressive episode: Status: Acute Code(s): F32.9 - Major depressive disorder, single episode, unspecified Plan 09/11: start zoloft 5 mg daily for anxiety and depression. increase to 50 mg daily once it is established pt is tolerating the medication. start prazosin 1 mg at HS for nightmares and insomnia in PTSD. refer for therapy and meds at discharge. 09/12: slept well last night. mild HERNANDEZ, otherwise no complaints. continue current mgmt. 09/13: HERNANDEZ resolved. poor sleep. increase prazosin to 2 mg QHS, trazodone to 100 mg, and zoloft to 50 mg. 09/14: Continue current regimen and plans 09/15: Continue current plans and regimen Reason for continued inpatient stay Substantial Risk for: med/psych decompensation Time Spent With Patient Time: Total time managing care of this patient today ____ minutes.
[2023-09-15] MEDS: hydrOXYzine HCL 25 MG TABLET PO ×2 (14:59→23:45)
[2023-09-15] MEDS: Nicotine Polacrilex 2 MG GUM 4 MG BUCCAL (16:16)
[2023-09-15 20:55] VITALS: BP 130/74; PULSE 97; RESP 15; TEMP 36.8; O2SAT 95
[2023-09-15] MEDS: Prazosin HCL 1 MG CAPSULE 2 MG PO (21:08)
[2023-09-16 07:20] VITALS: BP 118/74; PULSE 78; TEMP 36.8; O2SAT 95
[2023-09-16] MEDS: Sertraline HCL 50 MG TABLET PO (08:41)
[2023-09-16] MEDS: Nicotine 21 MG PATCH.TD24 TRANSDERMA (08:41)
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
[2023-09-16] MEDS: Ibuprofen 600 MG TABLET PO (13:09)
[2023-09-16] MEDS: Fluconazole 150 MG TABLET PO (13:29)
[2023-09-16] MEDS: hydrOXYzine HCL 25 MG TABLET PO (18:12)
[2023-09-16 19:40] VITALS: BP 134/67; PULSE 92; RESP 16; TEMP 36.7; O2SAT 98
[2023-09-16] MEDS: traZODone HCL 100 MG TABLET PO (20:59)
[2023-09-16] MEDS: Prazosin HCL 1 MG CAPSULE 2 MG PO (21:00)
[2023-09-17] MEDS: traZODone HCL 100 MG TABLET PO (01:01)
[2023-09-17 07:30] VITALS: BP 125/66; PULSE 67; TEMP 36.5; O2SAT 97
[2023-09-17] MEDS: Nicotine 21 MG PATCH.TD24 TRANSDERMA (08:26)
[2023-09-17] MEDS: Sertraline HCL 50 MG TABLET PO (08:27)
== END 2023-09-17 10:20 | disposition home or self-care (01) | DRG 754 ==
LOC: HO.ED 13:00 → HO.PADLT16 15:08
PROVIDERS: Physician Assistant Medical; Admitting Provider Psychiatry & Neurology Psychiatry; Emergency Provider Emergency Medicine; Visit Provider Psychiatry & Neurology Psychiatry
DX: F32.9 Major depressive disorder, single episode, unspecified (principal); R45.851 Suicidal ideations; R45.850 Homicidal ideations; F43.12 Post-traumatic stress disorder, chronic; F17.210 Nicotine dependence, cigarettes, uncomplicated; Z71.6 Tobacco abuse counseling; Z20.822 Contact with and (suspected) exposure to COVID-19; Z62.810 Personal history of physical and sexual abuse in childhood; Z79.899 Other long term (current) drug therapy
CPT/HCPCS: 36415; 80048; 80076; 80307; 81001; 81025; 85025; 87635; 90686; 99285

== ENCOUNTER → 2023-09-10 15:00 | Outpatient (BNV) | payer OTHER, SELFPAY | PROVIDERS: Admitting Provider Psychiatry & Neurology Psychiatry; Emergency Provider Emergency Medicine; Visit Provider Clinical Nurse Specialist Psychiatric/Mental Health, Adult | DX: F32.2 Major depressive disorder, single episode, severe without psychotic features (principal); F43.12 Post-traumatic stress disorder, chronic | CPT/HCPCS: 99231; 99232; 99233; 99499 ==

== ENCOUNTER 2023-12-06 00:42 | Emergency (ER) | payer MEDICAID, SELFPAY ==
--- NOTE | ~2023-12-06 | XR_ITS ---
EXAMINATION: XR KNEE, LEFT CLINICAL INFORMATION: Pain. COMPARISON: None available. TECHNIQUE: Four views of the left knee. FINDINGS: The bone mineralization is normal. There is evidence of prior anterior cruciate ligament repair. The joint spaces are maintained. There is no fracture. The soft tissues are unremarkable. XR/XR knee LT 4V IMPRESSION: Evidence of prior anterior cruciate ligament repair. No acute osseous abnormality.
[2023-12-06 00:56] VITALS: BP 133/83; PULSE 91; RESP 18; TEMP 36.6; O2SAT 96; BMI 35.8
[2023-12-06 02:45] VITALS: BP 113/58; PULSE 87; RESP 16; TEMP 36.6; O2SAT 99
[2023-12-06 04:00] VITALS: BP 117/72; PULSE 87; RESP 16; TEMP 36.4; O2SAT 97
--- NOTE | 2023-12-06 04:07 | ED_ITS ---
HPI - General Adult General Chief complaint: Extremity Problem Stated complaint: lower extremity abscess? Time Seen by Provider: 12/06/23 03:55 History of Present Illness HPI narrative: Patient is a 27-year-old female who had ACL surgery on 07/25/2022. She did well postoperatively. However over the last month she has noticed a small bump on the left leg tibial tuberosity just under 1 of the surgical scars. She says that the bump has gotten bigger and become painful to the point where it is now painful to walk. She has had no fevers, sweats, chills. She denies any trauma or injury to the knee. She has been in contact with her orthopedic office and in fact has an appointment on Saturday but her pain was such that she came to the emergency room tonight to be seen. No pain in the calf. No chest pain or shortness of breath. No fever, sweats, chills. No nausea or vomiting. Related Data Previous Rx's Medication Instructions Recorded nicotine (polacrilex) 2 mg gum 4 mg buccal Q2H PRN Nicotine 09/16/23 Cravings 30 days #120 ea nicotine 21 mg/24 hr daily 21 mg transdermal DAILY 28 days 09/16/23 transdermal patch #28 ea prazosin 1 mg capsule 2 mg PO BEDTIME 30 days #60 caps 09/16/23 sertraline 50 mg tablet 50 mg PO DAILY 30 days #30 tabs 09/16/23 trazodone 100 mg tablet 150 mg (1.5 x 100 mg) PO BEDTIME 09/16/23 Insomnia 30 days #45 tabs ibuprofen 600 mg tablet 600 mg PO Q6H PRN pain #14 tabs 12/06/23 Allergies Allergy/AdvReac Type Severity Reaction Status Date / Time No Known Allergies Allergy Verified 12/06/23 00:54 [No Known Allergies*] Review of Systems Review of Systems: Yes all other systems are reviewed and are negative PMFSH Past Medical History Onset Date is defined in the Problem List Problems that require an onset date and time if occurred within 24 hrs of arrival to the ED Aortic Dissection and Rupture; Neurologic impairment; Cardiopulmonary Arrest; Endotracheal Intubation; Insertion or Replacement of Mechanical Circulatory Assist Device Medical History Knee dislocation Social History Social History Household Members: None Housing: Apartment Do you presently have visiting nurse or other home services: No Patient Tobacco Use Status: Current everyday Tobacco user Tobacco use type: Cigarette Cigarettes Per Day: 3 Smoked in Last 30 Days: No e-Cigarette/Vaping Use: Never Used Second Hand Smoke Exposure: Yes Use of substances other than those prescribed or required for medical reasons: Yes Substance Use Type: Marijuana Advance Directives: No Advance Directives Information Provided: No Patient : No service: No Current occupational status: employed 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 She looked well except when she was walking when she limped because of apparent discomfort in the left leg. HENMT Other: The face is symmetrical. ?Mucous membranes moist. Eyes Other: Pupils are round equal, conjunctivae are clear, extraocular movements intact Resp Effort & Inspection: normal respiratory effort Auscultation: clear to auscultation bilaterally Cardio Rate: regular rate Rhythm: regular rhythm Heart sounds: S1 normal heart sound present and S2 normal heart sound present Skin Other: There is a small area of swelling under the surgical scar on the left leg [id number] just at the medial aspect portion of the tibial tuberosity. Neuro Other: The patient is awake and alert and grossly neurologically intact Extrem Other: The patient indicates an area of pain and swelling just below the left knee at the level of the tibial tuberosity. There is a 1.5 cm surgical scar in this area and below the surgical scar is a palpable nodule that is tender. Palpation of this area seems to reproduce the patient's pain. The patient can put the knee through a fairly good range of motion. Medications Administered Discontinued Medications Generic Name Dose Route Start Last Admin Trade Name Freq PRN Reason Stop Dose Admin Ketorolac Tromethamine 30 mg 12/06/23 04:45 12/06/23 05:25 Ketorolac Tromethamine 30 Mg/Ml Vial IM 12/06/23 04:46 30 mg ONCE ONE Administration Medical Decision Making Medical Decision Making [facility] Narrative: The patient is a 27-year-old female who has pain near her left tibial tuberosity. There is a palpable nodule in the area of pain and palpation of this area and nodule is very tender and seems to reproduce the patient's pain. The nodule is immediately under a surgical scar from the patient's ACL repair surgery 15 months ago. The nodule at the tibial tuberosity seems to be the source of the patient's pain. There is no finding to suggest a DVT additionally the patient can put the knee through a good range of motion (although with some discomfort) so I do not think that a septic joint could be at work. There is no erythema over the nodule. I think this is likely to be an infectious process at all. I performed a bedside ultrasound in the area of the patient's pain and tenderness. There is a small cystic structure overlying the tibial tuberosity. X-ray of the left knee is unremarkable. The patient has an appointment with her orthopedist in 4 days on Saturday. I think the patient may be discharged with pain management until she follows up with her orthopedist next week. She requested a knee immobilizer. She did not want to have crutches. She was given a prescription for ibuprofen. Discharge Plan Discharge Clinical Impression: Left anterior knee pain Patient Disposition: Home, Self-Care Additional Instructions: You seem to have some kind of cystic structure under your skin at the site of the surgical incision from your knee surgery. Please plan on keeping your appointment with your orthopedist next week. Use the knee immobilizer if you feel that it helps with your pain while walking. I have sent a prescription for ibuprofen you may use as needed for pain. You may also take acetaminophen (Tylenol). Prescriptions: New ibuprofen 600 mg tablet 600 mg PO Q6H PRN (Reason: pain) Qty: 14 0RF No Action nicotine (polacrilex) 2 mg Gum 4 mg buccal Q2H PRN (Reason: Nicotine Cravings) 30 Days Qty: 120 0RF prazosin 1 mg Capsule 2 mg PO BEDTIME 30 Days Qty: 60 0RF Protocol: Hold for SBP< HOLD for SBP < : 90 trazodone 100 mg Tablet 150 mg PO BEDTIME 30 Days Qty: 45 0RF nicotine 21 mg/24 hr Patch 24 Hour 21 mg transdermal DAILY 28 Days Qty: 28 0RF sertraline 50 mg Tablet 50 mg PO DAILY 30 Days Qty: 30 0RF Referrals: Filiberto Hammer MD [Physician] - (Painful cystic structure under surgical scar) Stand Alone Forms: Work/School Release Interventions: ED Discharge Assessment Last Done: 12/06/23 06:54 Discharge Date/Time: 12/06/23 06:55
--- NOTE | 2023-12-06 04:48 | MHC.EDTECH ---
KNEE IMMOBLIZER APPLY TO PATIENT LEFT KNEE .
[2023-12-06] MEDS: Ketorolac Tromethamine 30 MG/ML VIAL IM (05:25)
== END 2023-12-06 06:55 | disposition home or self-care (01) ==
PROVIDERS: Emergency Provider Emergency Medicine
DX: M25.562 Pain in left knee (principal)
CPT/HCPCS: 73564; 96372; 99284; J1885

== ENCOUNTER 2023-12-09 07:22 | Outpatient (REF) | payer MEDICAID, SELFPAY ==
--- NOTE | ~2023-12-09 | XR_ITS ---
EXAMINATION: XR KNEE AP STANDING XR KNEE, LEFT CLINICAL INFORMATION: Pain in unspecified knee COMPARISON: Left knee 12/06/2023 TECHNIQUE: AP bilateral standing view of the knees was obtained. Lateral and sunrise view of the left knee FINDINGS: Bone mineralization is normal. There is evidence of prior left anterior cruciate ligament repair. No fracture. Small left knee joint effusion. Alignment is anatomic. Joint spaces are maintained. No abnormal soft tissue calcification. XR/XR knee LT 2V IMPRESSION: 1. No acute bony abnormality. 2. Small left knee joint effusion. 3. Prior left anterior cruciate ligament repair.
--- NOTE | ~2023-12-09 | XR_ITS ---
EXAMINATION: XR KNEE AP STANDING XR KNEE, LEFT CLINICAL INFORMATION: Pain in unspecified knee COMPARISON: Left knee 12/06/2023 TECHNIQUE: AP bilateral standing view of the knees was obtained. Lateral and sunrise view of the left knee FINDINGS: Bone mineralization is normal. There is evidence of prior left anterior cruciate ligament repair. No fracture. Small left knee joint effusion. Alignment is anatomic. Joint spaces are maintained. No abnormal soft tissue calcification. XR/XR knee standing BI IMPRESSION: 1. No acute bony abnormality. 2. Small left knee joint effusion. 3. Prior left anterior cruciate ligament repair.
== END 2023-12-09 07:23 | disposition home or self-care (01) ==
LOC: HO.HOSX 07:22
PROVIDERS: Visit Provider Orthopaedic Surgery
DX: Z98.890 Other specified postprocedural states (principal)
CPT/HCPCS: 73560; 73565; 99212

== ENCOUNTER 2023-12-09 09:31 | Outpatient (AMB) | payer MEDICAID, SELFPAY ==
[2023-12-09 09:42] VITALS: BMI 35.7
--- NOTE | 2023-12-09 09:42 | A.OFFVIS_ITS ---
Intake Vital Signs 12/09/23 09:42 Height 5 ft 2 in Weight 195 lb BMI 35.7 Intake Visit Reasons: OV - Left ACL repair, 07/25/22 NE Intake Note: Keri is a 27 year old female who presents today for a follow up for her left ACL repair, 07/25/22 NE. Patient reports that she has a lump at the base of her incision that has continued to increase in size. She was [place] [facility] [place] where there was a cyst found in ultrasound. Patient reports that the growth on anterior aspect of the knee has been present for about 2 months, this is painful. Pain increases with bending, palpitation and cold temperatures. Allergies No Known Allergies [No Known Allergies*] Allergy (Verified 12/06/23 00:54) HPI OV - Left ACL repair, 07/25/22 NE HPI Details Keri is a 27 year old woman who presents ~4 1/2 months S/P left ACL repair. She complains of a painful mass forming at the base of her incision, which has been present for a few weeks now. She says before this formed she was doing well, without complaints. She has some pain with knee ROM, but her pain is primarily caused when pressure is applied to this mass. She was seen in the ED on 12/06/23 for her pain where an US showed a forming cyst near the Tibial tuberosity. She was given Ibuprofen and a knee immobilizer and told to follow up today. 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 Sexual orientation: Straight/Heterosexual Review of Systems Const All systems reviewed & are unremarkable except as noted in HPI and below Physical Exam Vital Signs: BMI result Body Mass Index 35.7 Const General: no acute distress, alert and awake Orientation/consciousness: patient oriented x3 HEENT Head: Yes normocephalic and Yes atraumatic Eyes EOM: EOMs intact bilaterally Resp Effort & Inspection: normal respiratory effort and able to speak in complete sentences Cardio Jugular venous distension: no JVD Skin General skin exam: turgor normal Rashes: no rashes Neuro General: patient oriented x3 Extrem Other: Swelling over anteromedial tibial plateau 1+ lachamn with endpoint no knee effusion Psych Appearance: grossly normal Affect: normal affect Attitude: cooperative Results Reviewed Results Reviewed: I personally reviewed relevant radiographs. Enlarged tibial tunnel Assessment & Plan Assessment & Plan (1) S/P ACL reconstruction: Code(s): Z98.890 - Other specified postprocedural states Plan: S/p Left ACL reconstruction with enlarged tibial tunnel and swelling MRI to assess Plan Prepared for Filiberto Hammer MD by Rod Barnett, medical staff services coordinator, on 12/09/23 at 9:47 AM, EST. Orders: Orders XR knee LT 2V Today M25.569 - Pain in unspecified knee XR knee standing BI Today M25.569 - Pain in unspecified knee MR knee LT wo con Today Z98.890 - Other specified postprocedural states Coding Level of Care Code Est Pt Level 4 (82185) Diagnoses S/P ACL reconstruction Z98.890
== END 2023-12-09 10:17 | disposition home or self-care (01) ==
PROVIDERS: Visit Provider Orthopaedic Surgery
DX: S83.207D Unspecified tear of unspecified meniscus, current injury, left knee, subsequent encounter (principal); S83.512D Sprain of anterior cruciate ligament of left knee, subsequent encounter
CPT/HCPCS: 99214

== ENCOUNTER 2023-12-16 19:58 | Outpatient (REF) | payer MEDICAID, SELFPAY ==
--- NOTE | ~2023-12-16 | MR_ITS ---
EXAMINATION: MR KNEE WITHOUT CONTRAST, LEFT CLINICAL INFORMATION: Left knee pain. Previous ACL reconstruction. COMPARISON: MRI 07/12/2022. Radiographs 12/09/2023 TECHNIQUE: MRI of the knee without contrast was performed using routine sequences on a high-field scanner. FINDINGS: MENISCI: Medial Meniscus: Postsurgical changes related to the repair of the bucket-handle tear intermediate signal extending to the undersurface at the junction of the body and posterior horn, and a vertical linear focus of intermediate signal of the meniscal body on sagittal image 21. Correlate with the surgical result. No definite recurrent tear. Lateral Meniscus: Intact LIGAMENTS: Cruciate: The ACL graft appears intact although slightly thickened proximally. Additionally, there is cystic change within the tibial tunnel surrounding the graft. Mild surrounding bone marrow edema. This has a maximal transverse measurement of 1.9 cm proximally. In addition, this communicates with an extraosseous septated fluid collection measuring 2.2 x 1.4 x 2.2 cm, projecting into the subcutaneous fat medial to the tibial tubercle. Mild adjacent soft tissue edema. Collateral: Intact EXTENSOR MECHANISM: Intact ARTICULAR CARTILAGE/BONE: Patellofemoral Compartment: Normal Medial Compartment: Small marginal osteophytes. Lateral Compartment: Normal JOINT FLUID AND BURSAE: No significant joint effusion. There is a 1 cm area of intermediate signal soft tissue anterior to the distal graft which may represent focal synovitis or scarring. MR/MR knee LT wo con IMPRESSION: 1. Postsurgical changes of the medial meniscus as described. No definite recurrent tear. 2. The ACL graft appears intact although slightly thickened proximally. There is a 1 cm area of intermediate signal soft tissue anterior to the distal graft which may represent focal synovitis or scarring. There is cystic change within the tibial tunnel surrounding the graft with surrounding bone marrow edema. This communicates with an extraosseous septated fluid collection measuring 2.2 x 1.4 x 2.2 cm, projecting into the subcutaneous fat medial to the tibial tubercle. Mild adjacent soft tissue edema.
== END 2023-12-16 19:59 | disposition home or self-care (01) ==
LOC: HO.MRI 19:58
PROVIDERS: Visit Provider Orthopaedic Surgery
DX: Z98.890 Other specified postprocedural states (principal)
CPT/HCPCS: 73721

== ENCOUNTER 2023-12-23 14:36 | Outpatient (AMB) | payer MEDICAID, SELFPAY ==
--- NOTE | 2023-12-23 14:41 | MHC.OFFVIS ---
Intake Intake Visit Reasons: ov- MRI Knee LT WO review Intake Note: Keri is a 28 year old female who presents today with her father for a left knee MRI review Allergies No Known Allergies [No Known Allergies*] Allergy (Verified 12/06/23 00:54) HPI ov- MRI Knee LT WO review HPI Details Keri is a 28 year old woman who presents ~18 months S/P left ACL repair. She complains of a painful mass forming at the base of her incision, which has been present for a few weeks now. She says before this formed she was doing well, without complaints. She is here with her father for an MRI review. [facility] Medical History (Updated 12/31/23 @ 10:12 by Vesta Cortés RN) Pre-eclampsia delivery delivered Depressed affect Knee dislocation Surgical History (Updated 12/31/23 @ 10:11 by Vesta Cortés RN) History of knee surgery Social History Household Members: None Housing: Apartment Do you presently have visiting nurse or other home services: No Patient Tobacco Use Status: Former Tobacco user Tobacco use type: Cigarette Cigarettes Per Day: 3 e-Cigarette/Vaping Use: Never Used Second Hand Smoke Exposure: Yes Use of substances other than those prescribed or required for medical reasons: Yes Substance Use Type: Marijuana Are you DNR?: No Advance Directives: No Advance Directives Information Provided: Yes service: No Current occupational status: employed 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 Sexual orientation: Straight/Heterosexual Review of Systems Const All systems reviewed & are unremarkable except as noted in HPI and below Physical Exam Const General: no acute distress, alert and awake Orientation/consciousness: patient oriented x3 HEENT Head: Yes normocephalic and Yes atraumatic Eyes EOM: EOMs intact bilaterally Resp Effort & Inspection: normal respiratory effort and able to speak in complete sentences Cardio Jugular venous distension: no JVD Skin General skin exam: turgor normal Rashes: no rashes Neuro General: patient oriented x3 Extrem Other: ACL stable with firm endpoint with Christy's There is swelling without pain or erythema over the tibial tunnel Psych Appearance: grossly normal Affect: normal affect Attitude: cooperative Results Reviewed Results Reviewed: I personally reviewed the MR images. 1. Postsurgical changes of the medial meniscus as described. No definite recurrent tear. 2. The ACL graft appears intact although slightly thickened proximally. There is a 1 cm area of intermediate signal soft tissue anterior to the distal graft which may represent focal synovitis or scarring. There is cystic change within the tibial tunnel surrounding the graft with surrounding bone marrow edema. This communicates with an extraosseous septated fluid collection measuring 2.2 x 1.4 x 2.2 cm, projecting into the subcutaneous fat medial to the tibial tubercle. Mild adjacent soft tissue janene Assessment & Plan Assessment & Plan (1) S/P ACL reconstruction: Code(s): Z98.890 - Other specified postprocedural states Plan: This is a 28 yo F with swelling in the tibial tunnel and MRI appearance of intraosseaus cyst about the tibial interference screw with intact ACL graft. This is uncomfortable for her and I recommend left knee arthroscopy with tibial tunnel debridement. I discussed the risks benefits and alternatives including but not limited to the risk of pain, infection, stiffness, need for further surgery as well as potential medical complications. She expressed understanding and we will proceed forward accordingly Plan Prepared for Filiberto Hammer MD by Rod Barnett, medical transcription radiology, on 12/23/23 at 2:47 PM, EST. Coding Level of Care Code Est Pt Level 4 (30710) Diagnoses S/P ACL reconstruction Z98.890
== END 2023-12-23 14:53 | disposition home or self-care (01) ==
PROVIDERS: Visit Provider Orthopaedic Surgery
DX: S83.512D Sprain of anterior cruciate ligament of left knee, subsequent encounter (principal)
CPT/HCPCS: 99214

== ENCOUNTER → 2023-12-23 14:36 | Outpatient (BNVA) | payer MEDICAID, SELFPAY | PROVIDERS: Visit Provider Orthopaedic Surgery | DX: R93.6 Abnormal findings on diagnostic imaging of limbs (principal) | CPT/HCPCS: 99212 ==

== ENCOUNTER 2023-12-31 09:50 | Day surgery (SDC) | payer MEDICAID, SELFPAY ==
--- NOTE | 2023-12-30 09:38 | HO.ANESPROP2 ---
Documented by User: Neema Huerta NP 12/30/23 09:39 HPI - Anesthesia Eval Consult details Narrative: 28yo F for Left Knee Arthroscopy,possible tibial interference, PMFSH Active Problems Active Problems: All Active Problems (Updated 12/07/23 @ 00:02 by Amarilis Briones) S/P ACL reconstruction (Acute) Major depressive episode (Acute) Chronic post-traumatic stress disorder (PTSD) (Acute) Tears of meniscus and ACL of left knee (Acute) Locked knee (Acute) Internal derangement of left knee (Acute) Past Medical History Medical History Pre-eclampsia delivery delivered Depressed affect Knee dislocation Family History Family history of problems with anesthesia: No Surgical History Surgical History History of knee surgery History of Problems with Anesthesia: No Social History Social History Household Members: None Housing: Apartment Do you presently have visiting nurse or other home services: No Patient Tobacco Use Status: Former Tobacco user Tobacco use type: Cigarette Cigarettes Per Day: 3 e-Cigarette/Vaping Use: Never Used Second Hand Smoke Exposure: Yes Use of substances other than those prescribed or required for medical reasons: Yes Substance Use Type: Marijuana Are you DNR?: No Advance Directives: No Advance Directives Information Provided: Yes service: No Current occupational status: employed 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 Sexual orientation: Straight/Heterosexual Meds Allergies Allergy/AdvReac Type Severity Reaction Status Date / Time No Known Allergies Allergy Verified 12/06/23 00:54 [No Known Allergies*] Exam Pertinent Lab Results Pertinent Lab Results: Laboratory Tests 09/10/23 10:42 WBC 7.5 Hgb 14.3 Hct 44.2 Plt Count 238 Sodium 139 Potassium 4.3 Chloride 107 Carbon Dioxide 25 BUN 13 Creatinine 0.68 Assessment and Plan Assessment Anesthesia Assessment: Chart Reviewed Final Anesthetic Review Family History of Problems with Anesthesia: No History of Problems with Anesthesia: No Documented by User: Maik Neely MD 12/31/23 11:27 PMFSH Past Medical History Medical History Pre-eclampsia delivery delivered Depressed affect Knee dislocation Surgical History Surgical History History of knee surgery Social History Social History Household Members: None Housing: Apartment Do you presently have visiting nurse or other home services: No Patient Tobacco Use Status: Former Tobacco user Tobacco use type: Cigarette Cigarettes Per Day: 3 e-Cigarette/Vaping Use: Never Used Second Hand Smoke Exposure: Yes Use of substances other than those prescribed or required for medical reasons: Yes Substance Use Type: Marijuana Are you DNR?: No Advance Directives: No Advance Directives Information Provided: Yes service: No Current occupational status: employed 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 Sexual orientation: Straight/Heterosexual Meds Allergies Allergy/AdvReac Type Severity Reaction Status Date / Time No Known Allergies Allergy Verified 12/06/23 00:54 [No Known Allergies*] Exam Airway Mallampati Class: II TM Dist: >3cm Neck ROM: Full Assessment and Plan Assessment Anesthesia Assessment: Anesthesia Plan Discussed Final Anesthetic Review NPO: Yes ASA Class: II Final Preanesthetic Review: No Changes in Pt Med Stat, Meds/Allgs Chart Reviewed, Consent Obtained/Reviewed and Anes Risks/Benef Reviewed Patient Risk: Low Procedure Risk: Low Anesthetic Plan Anesthetic Plan: GA Disposition: Standard PACU
[2023-12-31] VITALS (9 sets, daily range): BP systolic 111–140; BP diastolic 60–81; PULSE 68–88; RESP 16–18; TEMP 36.4–36.5; O2SAT 94–100; BMI 39.4
[2023-12-31 10:13] LABS: UPreg QC Valid YES
[2023-12-31 10:14] LABS: Urine Pregnancy NEGATIVE (NEGATIVE)
[2023-12-31] MEDS: Lactated Ringers 1,000 ML 100 ML IVCONT (10:40)
--- NOTE | 2023-12-31 11:12 | MHC.SHP ---
Pre-Procedural Eval Section A - 24 Hr Update-Section A only Date of Service: 12/31/23 The patient is an INPATIENT: No Changes since office visit: No Cold of Flu in the past 2 weeks, No New Medical Problems, No Changes in Medication and No Patient answered all questions The patient has been examined within 24 hours of the surgical procedure. The History & Physical has been completed within 30 days and I have reviewed it.: Yes Section B - Complete if H&P > 30 days Chief Complaint: Synovitis and tenosynovitis, unspecified Allergies: Allergies Allergy/AdvReac Type Severity Reaction Status Date / Time No Known Allergies Allergy Verified 12/06/23 00:54 [No Known Allergies*] Plan I have reviewed the history and physical and performed a pertinent physical examination on my patient. No changes have occurred unless specified. Time Spent With Patient Time: Total time managing care of this patient today ____ minutes.
--- NOTE | 2023-12-31 12:19 | P.BOP_ITS ---
Brief Operative Note Date of Service: 12/31/23 Pre-op diagnosis: Left knee tibial tunnel cyst Post-op diagnosis: same Procedure: Left knee and debridement tibial tunnel Surgeon: Filiberto Hammer MD Anesthesia: GLMA and local Was an Elastic Yarn Twister Helper used for this Procedure?: No Estimated blood loss (mL): 5 Tourniquet time (min): 39 IV fluids (mL): 800 Pathology: other Condition: stable Disposition: PACU
[2023-12-31] MEDS: ondansetron HCL 4 MG/2 ML VIAL IVPUSH (12:50)
[2023-12-31] MEDS: HYDROmorphone HCl 0.5 MG/0.5 ML SYRINGE 0.25 MG IVPUSH (12:58)
[2023-12-31] MEDS: oxyCODONE HCl Immed Release 5 MG TABLET PO (12:58)
--- NOTE | 2024-01-01 08:18 | P.OP_ITS ---
Operative Note Operative Note Date of Service: 12/31/23 Narrative: Date of Service: 12/31/23 Pre-op diagnosis: Left knee tibial tunnel cyst Post-op diagnosis: same Procedure: Left knee and debridement tibial tunnel Surgeon: Filiberto Hammer MD Anesthesia: GLMA and local Was an Limousine Rental Clerk used for this Procedure?: No Estimated blood loss (mL): 5 Tourniquet time (min): 39 IV fluids (mL): 800 Pathology: other Condition: stable Disposition: PACU Procedure in detail: Patient was brought to the operating room placed supine on the arthroscopic table and prepped and draped in standard sterile fashion. A time-out was called to identify proper site proper procedure proper surgeon and IV antibiotics per weight were administered. I began by exsanguinating the limb and insufflating tourniquet to 300 mm Hg. I aspirated 5 ml of gelatinous fluid from the tibial ACL incision and sent this for culture. Antibiotics were then administered. I then made a standard anterolateral stab incision. The knee was insufflated with water and 30 degree arthroscope was placed. There was grade 1 fibrillations of the patella but overall the suprapatellar pouch and the gutters were clean. I descended into the medial compartment where I made my medial portal under direct visualization. There was a stable medial meniscus with repair sutures intacdt and stable. This was probed.The lateral meniscus was also probed and was stable. There wwas lateral plateau early chondromalacia. THe ACL was examined and found to be intact and the tibial insertion was stable. I then removed the arthroscopic equipment and turned my attention to the tibial tunnel. I made a 2 cm incision over the prior incision and bluntly dissected down. There was a moderate sized ganglion cyst and this gelatinous cystic material was removed. There was some granulomatous-type material but the interference screw was not visualized. Partially resorbed allograft was removed and a currette was used to debride abnormal and extraneous tissue from the tunnel. I placed the camera back in the knee and insufflated the knee. There was no fluid extravasation through the tibial tunnel. I then removed all instrumentation and closed the portals and tibial inciaion with nylon. 25 mL of 2% Marcaine with epinephrine was injected into the soft tissues. Patient was then placed in sterile dressing extubated brought recovery room stable condition. There were no known complications.
== END 2023-12-31 14:58 | disposition home or self-care (01) ==
PROVIDERS: Nurse Practitioner; PCP Nurse Practitioner Family; Visit Provider Orthopaedic Surgery
PROC: (CPT 29870; principal; 2023-12-31 12:20)
DX: M67.462 Ganglion, left knee (principal); M94.262 Chondromalacia, left knee; Z98.890 Other specified postprocedural states
CPT/HCPCS: 27347; 29870; 81025; 87070; 87205; J0131; J0171; J0690; J1100; J1170; J1885; J2250; J2371; J2405; J2704; J2795; J3010

== ENCOUNTER → 2023-12-31 09:50 | Outpatient (BNV) | payer MEDICAID, SELFPAY | PROVIDERS: PCP Nurse Practitioner Family; Visit Provider Orthopaedic Surgery | DX: M67.462 Ganglion, left knee (principal) | CPT/HCPCS: 27347 ==

== ENCOUNTER 2024-01-10 09:04 | Outpatient (REF) | payer MEDICAID, SELFPAY ==
--- NOTE | ~2024-01-10 | XR_ITS ---
EXAMINATION: XR KNEE, LEFT CLINICAL INFORMATION: Previous ACL reconstruction. Pain in unspecified knee. COMPARISON: MR left knee of 12/16/2023. Knee radiographs of 12/09/2023. TECHNIQUE: Two views of the left knee. FINDINGS: Redemonstration of postsurgical changes of prior left anterior cruciate ligament repair. Small medial marginal osteophytes. Small suprapatellar effusion. Small posterior patellar osteophytes. Joint spaces are preserved. XR/XR knee LT 2V IMPRESSION: 1. Postsurgical changes of prior left anterior cruciate ligament repair. 2. Mild degenerative changes.
== END 2024-01-10 09:05 | disposition home or self-care (01) ==
LOC: HO.HOSX 09:04
PROVIDERS: Visit Provider Physician Assistant
DX: M25.562 Pain in left knee (principal); Z98.890 Other specified postprocedural states
CPT/HCPCS: 73560; 99212

== ENCOUNTER 2024-01-10 12:32 | Outpatient (AMB) | payer MEDICAID, SELFPAY ==
--- NOTE | 2024-01-10 12:34 | A.OFFVIS_ITS ---
Intake Intake Visit Reasons: PO LT knee poss tibial interference 01/01/24 NE Intake Note: Keri bell 28 year old female presents today for a post operative left knee and debridement tibial tunnel on 12/31/23 NE. Patient reports she is doing better than she was before surgery. She states that she has been doing at home exercises due to PT needing a Order from her PCP, however patient is on a waiting list to be seen with a PCP. . Allergies No Known Allergies [No Known Allergies*] Allergy (Verified 01/10/24 13:02) HPI PO LT knee poss tibial interference 01/01/24 NE HPI Details 28-year-old female who presents in the [facility] today 10 days status post left knee arthroscopy and debridement tibial tunnel, which was performed on 12/31/[address] aHmmer. The patient reports she has been doing better then she was before the surgery. She confirms working on home exercises due to physical therapy needing an order from her PCP. She states she is on a waiting list to be seen by her PCP. 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 Sutures intact. No surrounding erythema or drainage. No signs of infection. ROM is 0-90 degrees. NVI. Assessment & Plan Assessment & Plan (1) S/P left knee arthroscopy: Onset Date: ~12/31/23 Comment: Dr. Filiberto Hammer Code(s): Z98.890 - Other specified postprocedural states Plan Ms. Freeman is a 28-year-old female who presents in the office today 10 days status post left knee arthroscopy and debridement tibial tunnel, which was performed on 12/31/[address] Hammer. The patient reports she has been doing better then she was before the surgery. She confirms working on home exercises due to physical therapy needing an order from her PCP. She states she is on a waiting list to be seen by her PCP. Sutures were removed and steri-stripes were applied. She will remain out of work for 2 weeks. 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 Follow up with orthopedics will be PRN, or sooner if needed. X-rays of the left knee which were obtained while in the office today and were reviewed by me, Cassi Barakat PA-C, revealed no acute fracture or dislocation. It did show soft tissue edema over the tibial tunnel, where debridement had taken place. Current pain regiment: --Hydrocodone-acetaminophen 5-325 mg PO Q8H PRN; 21 tabs for 7 days Orders: Orders XR knee LT 2V Today M25.569 - Pain in unspecified knee Patient Instructions: Scribed by Marina Cat medical clerical assistant, for Cassi Barakat PA-C on 01/07/2024 at 12:35 pm, EST. Coding Level of Care Code Global (32263) Diagnoses S/P left knee arthroscopy Z98.890
== END 2024-01-10 13:31 | disposition home or self-care (01) ==
PROVIDERS: Visit Provider Physician Assistant
DX: Z98.890 Other specified postprocedural states (principal)
CPT/HCPCS: 99024

== ENCOUNTER 2024-04-02 13:43 | Outpatient (AMB) | payer MEDICAID, SELFPAY ==
--- NOTE | 2024-04-02 13:57 | A.OFFVIS_ITS ---
Vital Signs 04/02/24 13:58 Height 5 ft 1 in Weight 195 lb BMI 36.8 Intake Visit Reasons: LT knee poss tibial interference 01/01/24 NE Intake Note: Keri bell 28 year old female presents today for a post operative left knee and debridement tibial tunnel on 12/31/23 NE. Patient reports she had a fall this past Saturday and she is feeling very sore on the medial aspect of the knee. She expresses that she is having a lot of muscle spasms when she is sleeping on her knee. Allergies No Known Allergies [No Known Allergies*] Allergy (Verified 01/10/24 13:02) HPI HPI LT knee poss tibial interference 01/01/24 NE: Details: 28-year-old female who presents in the office today 3 months status post left knee arthroscopy and debridement tibial tunnel, which was performed on 12/31/[address] Hammer. 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 While in the office today the patient reports she had a fall on Saturday03/30/2024. She reports feeling sore on the medial aspect of the left knee. She reports a lot of muscle spasms when she is sleeping on the knee. 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 Sexual orientation: Straight/Heterosexual Review of Systems Const All systems reviewed & are unremarkable except as noted in HPI and below Physical Exam Vital Signs: BMI result Body Mass Index 36.8 Const General: cooperative and no acute distress Orientation/consciousness: Other orientation findings (oriented) Resp Effort & Inspection: normal respiratory effort and able to speak in complete sentences Cardio Rate: regular rate GI Palpation (GI): Soft to palpation Skin Lesions: no lesions Rashes: no rashes Extrem Other: Left knee: Prior ACL incision site and tibial debridement site scar is noted. No surrounding erythema or drainage. No signs of infection. No ecchymosis or joint effusion. No tenderness to palpation along the lateral joint line. Tenderness to palpation along the medial joint line. Fulll ROM. Negative Baldomero's. NVI. Assessment & Plan Assessment & Plan (1) S/P left knee arthroscopy: Onset Date: ~12/31/23 Comment: Dr. Filiberto Hammer Code(s): Z98.890 - Other specified postprocedural states Category: Surgical Plan Ms. Freeman is a 28-year-old female who presents in the office today 3 months status post left knee arthroscopy and debridement tibial tunnel, which was performed on 12/31/[address] Hammer. 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 While in the office today the patient reports she had a fall on Saturday03/30/2024. She reports feeling sore on the medial aspect of the left knee. She reports a lot of muscle spasms when she is sleeping on the knee. A prescription for Diclofenac 75 mg BID was sent to the pharmacy today. We discussed topical pain relievers such as [place], Diclofenac cream, Icy Hot, and Biofreeze to be used as needed. I think this needs some time for the inflammation to decrease. Should she continue to have pain over the next three weeks then we would consider doing physical therapy and/or additional imaging. Follow up will be in 3 weeks, or sooner if needed. Medications: New diclofenac sodium 75 mg PO BID PRN 60 tabs 0RF pain 30 days Patient Instructions: Scribed by Tashia Kulkarni medical transcription editor, for Cassi Barakat PA-C on 04/02/2024 at 02:20 p.m. EST. Corrections made by Marina Cat medical transcription editor, on 04/02/2024 at 5:13 pm. Coding Level of Care Code Global (75465) Diagnoses S/P left knee arthroscopy Z98.890
[2024-04-02 13:58] VITALS: BMI 36.8
== END 2024-04-02 15:02 | disposition home or self-care (01) ==
PROVIDERS: PCP Nurse Practitioner Family; Visit Provider Physician Assistant
DX: Z47.89 Encounter for other orthopedic aftercare (principal); M67.462 Ganglion, left knee
CPT/HCPCS: 99214

== ENCOUNTER → 2024-04-02 13:43 | Outpatient (BNVA) | payer MEDICAID, SELFPAY | PROVIDERS: PCP Nurse Practitioner Family; Visit Provider Physician Assistant | DX: Z98.890 Other specified postprocedural states (principal) | CPT/HCPCS: 99212 ==